=== PATIENT | male | born 1990 | race Caucasian/White ===

== ENCOUNTER 2023-12-19 13:45 | Outpatient (AMB) | payer MEDICARE, MEDICAID, SELFPAY ==
--- NOTE | 2023-12-19 13:48 | A.OFFVIS_ITS ---
Intake Intake Visit Reasons: neurogenic bladder Intake Note: New Patient presents today to establish treatment for: Neurogenic bladder medications: Blood Thinners: Patient symptoms: Patient does not have urinary symptoms, He straight cath with urethral catheter about 5 times a day. Hay Sorter Required: No Accompanied by: Self / Same As Patient Allergies NKDA Allergy (Unknown, Uncoded 12/20/23 18:14) Unknown Medication List - Last Reconciled 12/20/23 by AMINA Hagen duloxetine 60 mg PO DAILY pregabalin 200 mg PO TID HPI HPI Comments History of Present Illness Details Wyatt is a pleasant 33-year-old male patient. He has a past medical history of paraplegia, hyperthyroidism, neurogenic bladder, neurogenic bowel, underweight, recurrent urinary tract infections, and bladdder stones. He presents to the office today as a new patient for his neurogenic bladder and recurrent UTIs. In discussion with the patient today he reports having previo usly followed up with [facility] however has since inquired increasing medical bills and is unable to schedule appointment at this time. He discusses having suffered a trampoline accident approximately 2 and a half years ago and has been paraplegic since this accident. He discusses his previous history of bladder stones and recurrent urinary tract infections when first being diagnosed with a neurogenic bladder. He reports having had one surgical intervention for bladder stones approximately 2 years ago. He reports his last urinary tract infection was over a year ago. He also discusses having erectile dysfunction however does not feel this is bothersome at this time. He reports CIC typically 5-6 times per day. He currently denies any bothersome urinary issues or concerns. He denies urinary urgency, urinary frequency, incontinence, nocturia, hematuria, dysuria, foul smelling urine, flank pain, fever, and or chills. In office urinalysis results reviewed with the patient today. Discussed obtaining retroperitoneal ultrasound for further assessment evaluation. He otherwise offers no other issues or concerns at this time. [facility] Medical History (Updated 12/20/23 @ 18:27 by AMINA Hagen) History of kidney stones Surgical History (Updated 12/20/23 @ 18:30 by AMINA Hagen) H/O spinal fusion H/O lithotripsy Review of Systems Const Reports as per HPI Eyes Reports no additional complaints ENT Reports no additional complaints Card Reports no additional complaints Resp Reports no additional complaints GI Reports as per [facility] Reports as per [facility] Musc Reports as per [facility] Neuro Reports as per [facility] Psych Reports no additional complaints Endo Reports as per [facility] Physical Exam Const General: cooperative, healthy appearing, comfortable, no acute distress, well developed, alert and awake Orientation/consciousness: patient oriented x3 Limitations: wheelchair HEENT Head: Yes normal to inspection, Yes normocephalic and Yes atraumatic Ears: hearing grossly normal bilaterally Eyes General: appearance normal, both eyes and all related structures Neck Neck: Yes normal visual inspection and Yes trachea midline Chest Chest palpation & inspection: normal inspection of the chest Resp Effort & Inspection: normal respiratory effort and able to speak in complete sentences Cardio Rate: regular rate GI Inspection: Yes normal to inspection General: Yes no CVA tenderness Back/Spine/Pelvis Back: no CVA tenderness Skin General skin exam: no rashes or lesions noted Neuro General: patient oriented x3 Extrem General: Yes normal to inspection Psych Appearance: grossly normal and well kempt Mental Status: mental status grossly normal Speech and movement: Clear speech present Affect: normal affect Attitude: cooperative Thought process: Normal thought process present Thought content: Normal thought content present Insight: Fair insight present (Psych) Judgement: Fair judgement present (Psych) Results AMB Urinalysis, Automated UA Leukoctes 70 Megan/uL Last Edit by Cayla Preston [facility] on 12/19/23 14:20 UA Nitrite Negative Last Edit by Cayla Prestonritchie Preston [facility] on 12/19/23 14: 20 UA Urobilinogen 0.2 mg/dL Last Edit by Cayla Prestonritchie Preston [facility] on 4 14:20 UA Protein 0 mg/dL Last Edit by Cayla Prestonritchie Preston [facility] on 12/19/23 14:20 UA pH 7.0 Last Edit by Cayla Prestonritchie Preston [facility] on 12/19/23 14:20 UA Blood 0 Ryland/uL Last Edit by Cayla Prestonritchie Preston [facility] on 12/19/23 14:20 UA Specific [place] 1.020 Last Edit by Cayla Prestonritchie Preston [facility] on 14:20 UA Ketone Negative Last Edit by Cayla Prestonritchie Preston [facility] on 12/19/23 14:2 0 UA Bilirubin 0 mg/dL Last Edit by Cayla Preston [facility] on 12/19/23 14: 20 UA Glucose 0 mg/dL Last Edit by Cayla Preston CMA on 12/19/23 14:20 Results Reviewed Results Reviewed: Laboratory Last Values Urine pH (Auto) 7.0 12/19/23 13:56 Specific [place] (Auto) 1.020 12/19/23 13:56 Urine Protein (Auto) 0 mg/dL 12/19/23 13:56 Glucose (UA)(Auto) 0 mg/dL 12/19/23 13:56 Urine Ketones (Auto) Negative 12/19/23 13:56 Urine Blood (Auto) 0 Ryland/uL 12/19/23 13:56 Urine Nitrite (Auto) Negative 12/19/23 13:56 Urine Bilirubin (Auto) 0 mg/dL 12/19/23 13:56 Urine Urobilinogen (Auto) 0.2 mg/dL 12/19/23 13:56 Leukocyte Esterase (Auto) 70 Megan/uL 12/19/23 13:56 Assessment & Plan Assessment & Plan (1) Neurogenic bladder: Code(s): N31.9 - Neuromuscular dysfunction of bladder, unspecified (2) Recurrent UTI: Code(s): N39.0 - Urinary tract infection, site not specified (3) Bladder calculi: Code(s): N21.0 - Calculus in bladder Plan In office urinalysis results reviewed with the patient today; as noted above. Will send catheter supplies as requested to [facility]; patient performs CIC up to 6 times daily indefinitely. Discussed at length potential causes of recurrent urinary tract infections as well as bladder stones. Will obtain retroperitoneal ultrasound for further assessment evaluation. Patient currently denies any bothersome urinary issues or concerns. Discussed, educated, and stressed the importance of drinking water daily. Discussed importance of following bowel regimen as constipation can also contribute to recurrent urinary tract infections. Discussed possible near future in office cystoscopy for further assessment evaluation. Follow-up in 1-3 months with imaging to be completed prior; or sooner with any issues, concerns, and or questions. Orders: Orders AMB Urinalysis Automated 12/19/23 R33.9 - Retention of urine, unspecified US retroperitoneal comp 12/19/23 N31.9 - Neuromuscular dysfunction of bladder, unspecified Patient Instructions: The patient had an opportunity to ask questions regarding the treatment plan. All questions were answered. Physical exam, labs, and imaging were discussed and reviewed in detail. As well as risks, benefits, and discussion of treatment choices. No major barriers to understanding were identified. The patient expressed understanding and agreement with the above treatment plan. The patient was made aware they should contact our office by phone for worsening of their current condition, the appearance of new symptoms, or with any questions or concerns. Compliance is encouraged with any medications and follow up testing that is ordered. It is a privilege to be allowed the opportunity to participate in? your urological care.? Again, if you have any questions or concerns If you have any questions or concerns please do not hesitate to contact me. The office is [phone]. This note is constructed using voice recognition software. While every effort has been made to ensure accuracy substation operator errors may have been included. Yours sincerely, AMINA Hagen Coding Level of Care Code New Pt Level 3 (93764) Diagnoses Neurogenic bladder N31.9 Recurrent UTI N39.0 Bladder calculi N21.0
== END 2023-12-19 14:48 | disposition home or self-care (01) ==
PROVIDERS: Visit Provider Nurse Practitioner Family
DX: N31.9 Neuromuscular dysfunction of bladder, unspecified (principal); N39.0 Urinary tract infection, site not specified; N21.0 Calculus in bladder
CPT/HCPCS: 99203

== ENCOUNTER → 2023-12-19 13:45 | Outpatient (BNVA) | payer MEDICARE, MEDICAID, SELFPAY | PROVIDERS: Visit Provider Nurse Practitioner Family | DX: N31.9 Neuromuscular dysfunction of bladder, unspecified (principal); N39.0 Urinary tract infection, site not specified; N21.0 Calculus in bladder | CPT/HCPCS: 81003; 99202 ==

== ENCOUNTER 2024-03-08 13:07 | Outpatient (REF) | payer MEDICARE, MEDICAID, SELFPAY ==
--- NOTE | ~2024-03-08 | US_ITS ---
EXAMINATION: US RETROPERITONEAL COMPLETE (RENAL) CLINICAL INFORMATION: Neuromuscular dysfunction of bladder, unspecified. COMPARISON: None available. TECHNIQUE: Real-time imaging of the kidneys and bladder. FINDINGS: RIGHT KIDNEY: 12.3 x 3.9 x 6.1 cm (SAG x AP x TRV). The kidney is normal in size, contour, and echogenicity. Renal cortical thickness is normal. No calculi or focal parenchymal lesions. No hydronephrosis. LEFT KIDNEY: 12.9 x 5.2 x 5.4 cm (SAG x AP x TRV). The kidney is normal in size, contour, and echogenicity. Renal cortical thickness is normal. No calculi or focal parenchymal lesions. No hydronephrosis. BLADDER: Well distended and normal. Bilateral ureteral jets are demonstrated. Prevoid bladder volume is 304 mL. Postvoid bladder volume is 5 mL. ADDITIONAL FINDINGS: The prostate measures 27 mL. US/US retroperitoneal comp IMPRESSION: Mildly enlarged prostate. No hydronephrosis.
== END 2024-03-08 13:08 | disposition home or self-care (01) ==
LOC: HO.HMGCX 13:07
PROVIDERS: Visit Provider Nurse Practitioner Family
DX: N31.9 Neuromuscular dysfunction of bladder, unspecified (principal)
CPT/HCPCS: 76770

== ENCOUNTER 2024-03-12 10:17 | Outpatient (AMB) | payer MEDICARE, MEDICAID, SELFPAY ==
--- NOTE | 2024-03-12 10:17 | A.OFFVIS_ITS ---
Intake Visit Reasons: 3 month follow up/ US(set) Intake Note: Patient presents today for tele visit follow up on ultrasound Imagin03/08/24 Urology Medications: none Blood Thinners: none Roof Bolting Coal Miner Required: No Accompanied by: Self / Same As Patient Allergies NKDA Allergy (Unknown, Uncoded 03/12/24 10:37) Unknown Medication List - Last Reconciled 03/12/24 by AMINA Hagen duloxetine 60 mg PO DAILY pregabalin 200 mg PO TID HPI Comments Details: Wyatt is a pleasant 33-year-old male patient. He has a past medical history of paraplegia, hyperthyroidism, neurogenic bladder, neurogenic bowel, underweight, recurrent urinary tract infections, and bladdder stones. He is being followed up on today via video telehealth. Of note, patient was seen approximately 3 months ago as a new patient for his neurogenic bladder, recurrent UTIs, and bladder stones at which time a retroperitoneal ultrasound was ordered for further assessment evaluation. These results were reviewed with the patient today. Bilateral kidneys with no calculi, lesions, and or hy dronephrosis. The bladder is well distended and normal. Bilateral ureteral jets are demonstrated. Prevoid bladder volume is approximately 300mL. Postvoid bladder volume is 5 mL. Prostate volume measures approximately use be 30 mls. He had been previously following up with [facility]. He has a history of suffering a trampoline accident in 2021 and has been paraplegic since this accident. He does have a history of surgical intervention for his bladder stones. Last urinary tract infection was over a year ago. He also discusses having erectile dysfunction however does not feel this is bothersome at this time. He reports CIC typically 5-6 times per day. He currently denies any bothersome urinary issues or concerns. He denies urinary urgency, urinary frequency, incontinence, nocturia, hematuria, dysuria, foul smelling urine, flank pain, fever, and or chills. He otherwise offers no other issues or concerns at this time. [facility] Medical History History of kidney stones Surgical History H/O spinal fusion H/O lithotripsy Review of Systems Const Reports as per HPI Eyes Reports no additional complaints ENT Reports no additional complaints Card Reports no additional complaints Resp Reports no additional complaints GI Reports as per [facility] Reports as per [facility] Musc Reports as per [facility] Neuro Reports as per [facility] Psych Reports no additional complaints Endo Reports as per [facility] Physical Exam Const General: cooperative, healthy appearing, comfortable, no acute distress, well developed, alert and awake Orientation/consciousness: patient oriented x3 Resp Effort & Inspection: normal respiratory effort and able to speak in complete sentences Neuro General: patient oriented x3 Psych Appearance: grossly normal and well kempt Mental Status: mental status grossly normal Speech and movement: Normal speech and movement present and Clear speech present Affect: normal affect Attitude: cooperative Thought process: Normal thought process present Thought content: Normal thought content present Insight: Fair insight present (Psych) Judgement: Fair judgement present (Psych) Telehealth Telehealth Telehealth Platform: [employer] Location of provider rendering services: practice address Location of patient: address on file Patient Identification confirmed using: Name, : Yes Telehealth method: video Patient verbally consented to treatment: Yes Patient verbally consented to billing insurance company: Yes Patient informed of any privacy concerns related to visit: Yes Minutes spent on Phone/Video with Pt.: 15 Results Reviewed Results Reviewed: Date of Service: 03/08/24 EXAMINATION: US RETROPERITONEAL COMPLETE (RENAL) FINDINGS: RIGHT KIDNEY: 12.3 x 3.9 x 6.1 cm (SAG x AP x TRV). The kidney is normal in size, contour, and echogenicity. Renal cortical thickness is normal. No calculi or focal parenchymal lesions. No hydronephrosis. LEFT KIDNEY: 12.9 x 5.2 x 5.4 cm (SAG x AP x TRV). The kidney is normal in size, contour, and echogenicity. Renal cortical thickness is normal. No calculi or focal parenchymal lesions. No hydronephrosis. BLADDER: Well distended and normal. Bilateral ureteral jets are demonstrated. Prevoid bladder volume is 304 mL. Postvoid bladder volume is 5 mL. ADDITIONAL FINDINGS: The prostate measures 27 mL. IMPRESSION: Mildly enlarged prostate. No hydronephrosis. Assessment & Plan Assessment & Plan (1) Neurogenic bladder: Code(s): N31.9 - Neuromuscular dysfunction of bladder, unspecified Category: Medical (2) Recurrent UTI: Code(s): N39.0 - Urinary tract infection, site not specified Category: Medical (3) Bladder calculi: Code(s): N21.0 - Calculus in bladder Category: Medical Plan Recent retroperitoneal ultrasound results reviewed with the patient today; as noted above. Patient currently denies any bothersome urinary issues or concerns. Discussed, educated, and stressed the importance of drinking water daily. Continue CIC. Discussed prophylactic therapy for recurrent urinary tract infections if sy mptoms arise. Discussed importance of following bowel regimen as constipation can also contribute to recurrent urinary tract infections. Follow-up in 6 months; or sooner with any issues, concerns, and or questions. Patient Instructions: The patient had an opportunity to ask questions regarding the treatment plan. All questions were answered. Physical exam, labs, and imaging were discussed and reviewed in detail. As well as risks, benefits, and discussion of treatment choices. No major barriers to understanding were identified. The patient expressed understanding and agreement with the above treatment plan. The patient was made aware they should contact our office by phone for worsening of their current condition, the appearance of new symptoms, or with any questions or concerns. Compliance is encouraged with any medications and follow up testing that is ordered. It is a privilege to be allowed the opportunity to participate in? your urological care.? Again, if you have any questions or concerns If you have any questions or concerns please do not hesitate to contact me. The office is [phone]. This note is constructed using voice recognition software. While every effort has been made to ensure accuracy motor pool clerk errors may have been included. Yours sincerely, AMINA Hagen Coding Level of Care Code Tele Est Pt Level 3 (45871) Diagnoses Neurogenic bladder N31.9 Recurrent UTI N39.0 Bladder calculi N21.0
--- OUTSIDE RECORDS SUMMARY | 2024-03-12 10:19 | XMS_ITS | Continuity of Care Document ---
Author Organization [facility] Address [address] [place] [address]- Care Team Providers Care Greens Picker Name Role Phone Graciela Colon MD Primary Care Physician Encounter [facility] Date(s): 08/09/22 - 09/08/22 [facility] [address] [place] [id number] Allergies, Adverse Reactions, Alerts No Known Allergies Immunizations Given and Recorded Vaccine Date Status Refusal Reason tetanus/diphtheria/pertussis, acel(Tdap) 05/03/20 Given Medications acetaminophen 325 mg oral tablet 975 mg, 3, tablet, By Mouth, Every 6 hours, PRN, Refills 0, Maintenance, Pain , Moderate, 06/25/21 16:32:00 EDT, Partial fill upon patient request if the prescription is for a schedule II opioid drug. Start Date: 06/25/21 Status: Ordered docusate sodium 100 mg oral tablet 2 tablet = 200 mg, By Mouth, 3 times a day, PRN for constipation, # 100 tablet, 0 Refills, Maintenance, 06/25/21 16:33:00 EDT, Tablet, Partial fill upon patient request if the prescription is for a schedule II opioid drug. Start Date: 06/25/21 Status: Ordered duloxetine 60 mg oral enteric coated capsule See Instructions, TAKE 1 CAPSULE BY MOUTH EVERY DAY, # 90 capsule, 1 Refills, Maintenance, 07/29/2219:49:00 EDT, [facility]/pharmacy #[id number], 183, cm, 07/25/22 12:44:00 EDT, Height, 55, kg, 11/21/21 10:36:00EST, Dry Weight Start Date: 07/29/22 Status: Ordered ibuprofen 400 mg oral tablet 400 mg, 1, tablet, By Mouth, Every 8 hours, PRN, Refills 0, Maintenance, Pain , Moderate, 06/25/21 16:31:00 EDT, Partial fill upon patient request if the prescription is for a schedule II opioid drug. Start Date: 06/25/21 Status: Ordered magnesium oxide 400 mg oral tablet 1 tablet = 400 mg, By Mouth, Daily, 0 Refills, Maintenance, 06/25/21 16:33:00 EDT, Tablet, Partial fill upon patient request if the prescription is for a schedule II opioid drug. Start Date: 06/25/21 Status: Ordered pregabalin 200 mg oral capsule 1 capsule = 200 mg, By Mouth, 3 times a day, DATA REPORTING ANALYST checked, # 90 capsule, 5 Refills, Maintenance, 03/15/22 9:10:00 EDT, Capsule, [facility]/pharmacy #[id number], Partial fill upon patient request if the prescription is for a schedule II opioid drug., 183, cm, 02/14/... Start Date: 03/15/22 Status: Ordered Senokot 187 mg oral tablet 2 tablet = 17.2 mg, By Mouth, Daily at bedtime, PRN for constipation, # 20 tablet, 0 Refills, Maintenance, 06/25/21 16:31:00 EDT, Tablet, Partial fill upon patient request if the prescription is for a schedule II opioid drug. Start Date: 06/25/21 Status: Ordered Problem List Condition Confirmation Course Effective Dates Status H ealth Status Informant Hyperthyroidism Confirmed Active Paraplegia, incomplete Confirmed Active Neurogenic bladder Confirmed Active Neurogenic bowel Confirmed Active Social History Social History Type Response Tobacco Other: quit at 22. Sex Patient Care team information Personnel Name: Graciela Colon MD Address: Address: [address] [id number]
--- OUTSIDE RECORDS SUMMARY | 2024-03-12 10:19 | XMS_ITS | Continuity of Care Document ---
Author Organization [facility] Address [address] [place] [address]- Care Team Providers Care Dry Folder Cloth Name Role Phone Graciela Colon MD Primary Care Physician Encounter [facility] Date(s): 07/25/22 - 08/01/22 [facility] [address] [place] [id number] Encounter Diagnosis Paraplegia following spinal cord injury(Discharge Diagnosis) - 08/01/22 Attending Physician: Graciela Colon MD Allergies, Adverse Reactions, Alerts No Known Allergies [...] 90 capsule, 1 Refills, Maintenance, 07/29/2219:49:00 EDT, [facility] #[id number], 183, cm, 07/25/22 12:44:00 EDT, Height, [...] mg, By Mouth, 3 times a day, GRID TRIMMER checked, # 90 capsule, 5 Refills, Maintenance, 03/15/22 9:10:00 EDT, Capsule, [id number], Partial fill upon patient request if [...] opioid drug. Start Date: 06/25/21 Status: Ordered Super B Complex By Mouth, Daily, 0 Refills, Maintenance, 07/06/21 14:13:00 EDT, Partial fill upon patient request if the prescription is for a schedule II opioid drug. Start Date: 07/06/21 Status: Ordered Turmeric = 500 mg, By Mouth, Daily, 0 Refills, Maintenance, 07/06/21 14:13:00 EDT, Partial fill upon patientrequest if the prescription is for a schedule II opioid drug. Start Date: 07/06/21 Status: Ordered Problem List Condition Confirmation Course Effective Dates Status H ealth Status Informant Hyperthyroidism Confirmed Active Neurogenic bladder Confirmed Active Neurogenic bowel Confirmed Active Paraplegia following spinal cord injury Confirmed Active Diagnosis Diagnosis Type Effective Dates Health Status Clinical Service Informant Paraplegia following spinal cord injury Discharge Diagnosis 08/01/22 Vital Signs Most recent to oldest [Reference Range]: 1 Height 183 cm (07/25/22 12:44 PM) Weight 54.5 kg (07/25/22 12:44 PM) Body Mass Index [18.5-24.99 kg/m2] 16.27 kg/m2 *L* (07/25/22 12:44 PM) Weight Obtained Via Patient/family state d (07/25/22 12:44 PM) Social History Social History Type Response Tobacco Other: quit at 22. Sex Patient Care team information Personnel Name: Graciela Colon MD Address: Address: [address] [place] [address] [address] [place], [place] [id number]
--- OUTSIDE RECORDS SUMMARY | 2024-03-12 10:19 | XMS_ITS | Continuity of Care Document ---
Author Organization [facility] Address [address] [place] [address]- Care Team Providers Care Manager Of Warehouse Name Role Phone Isaiah SANTACRUZ, Graciela Primary Care Physician Encounter [facility] Date(s): 04/11/22 - 05/11/22 [facility] [address] [place] [id number] Allergies, Adverse Reactions, Alerts No Known [...] opioid drug. Start Date: 06/25/21 Status: Ordered Alpha Lipoic Acid 600 mg oral capsule 1 capsule = 600 mg, By Mouth, 2 times a day, 0 Refills, Maintenance, 06/25/21 16:34:00 EDT, Partialfill upon patient request if the prescription is [...] duloxetine 60 mg oral enteric coated capsule 1 capsule = 60 mg, By Mouth, Daily, # 90 capsule, 1 Refills, Maintenance, 01/14/22 14:36:00 EDT, ECCapsule, [id number], Partial fill upon patient request if the prescription is for a schedule II opioid drug., 183, cm, 01/14/22 12:55:00 EDT, H... Start Date: 01/14/22 Status: Ordered ibuprofen 400 mg oral tablet [...] mg, By Mouth, 3 times a day, LEAD LOADER checked, # 90 capsule, 5 Refills, Maintenance, 03/15/22 9:10:00 EDT, Capsule, [facility] #[id number], Partial fill upon patient request if the prescription is for a schedule II opioid drug., 183, cm, ... Start Date: 03/15/22 Status: Ordered Senokot 187 [...] Date: 07/06/21 Status: Ordered Problem List Condition Effective Dates Status Health Status Inform ant Back pain(Confirmed) Active Closed burst fracture of lum bar vertebra(Confirmed) Active Headache(Confirmed) Active H/o Lyme disease(Confirmed) Active Hyperthyroidism(Confirmed) Active Neurogenic bladder(Confirmed) Active Neurogenic bowel(Confirmed) Active Pain, neuropathic(Confirmed) Active Paraplegia following spinal cord injury(Confirmed) Active Spasticity(Confirmed) Active Underweight(Confirmed) Active Social History Social History Type Response Smoking Status Former smoker; Tobac co user in household: No entered on: 03/10/15 Sex
--- OUTSIDE RECORDS SUMMARY | 2024-03-12 10:19 | XMS_ITS | Continuity of Care Document ---
Author Organization [facility] ter Address [address] [place] [address]- Care Team Providers Care Gravity Meter Operator Name Role Phone Sabine KURTZ, Brittany Roque Primary Care Physicia n [place] [facility] [place] - 11/28/[address] [address]- Encounter Diagnosis Depressed(Final) - 11/27/20 Discharge Disposition: Transferred to short-term general hospit Attending Physician: Arnel Shepherd MD Admitting Physician: Arnel Shepherd MD Referring Physician: Not on Staff, Referring MD Allergies, Adverse Reactions, Alerts Substance Reaction Severity Status NKA Active Immunizations Given and Recorded Vaccine Date Status Refusal Reason tetanus/diphtheria/pertussis, acel(Tdap) 05/03/20 Given Problem List Condition Effective Dates Status Health Status Inform ant Headache(Confirmed) Active H/o Lyme disease(Confirmed) Active Hyperthyroidism(Confirmed) Active Viral syndrome(Confirmed) Active Vital Signs Most recent to oldest [Reference Range]: 1 2 3 Height 180 cm (11/28/20 7:00 AM) 180 cm (11/27/20 4:15 PM) 180 cm (11/27/20 4:01 PM) Weight 59.8 kg (11/28/20 7:00 AM) 59.8 kg (11/27/20 4:15 PM) 59.8 kg (11/27/20 4:01 PM) Oxygen Saturation [94-100 %] 100 % (11/28/20 7:00 AM) 96 % (11/27/20 10:39 PM) 100 % (11/27/20 4:01 PM) Pulse Rate [55-90 bpm] 66 bpm (11/28/20 7:00 AM) 55 bpm (11/27/20 10:39 PM) 83 bpm (11/27/20 4:01 PM) Body Mass Index [18.5-24.99] 18.46 *L* (11/28/20 7:00 AM) 18.46 *L* (11/27/20 4:01 PM) Blood Pressure [90-138/55-84 mm Hg] 115/67mm Hg (11/28/20 7:00 AM) 115/70mm Hg (11/27/20 10:39 PM) 134/84mm Hg (11/27/20 4:01 PM) Respiratory Rate [16-30 br/min] 16 br/min (11/28/20 7:00 AM) 18 br/min (11/27/20 10:39 PM) 16 br/min (11/27/20 4:01 PM) Temperature [96.8-100.4 DegF] 98.6 DegF (11/28/20 7:00 AM) 98.2 DegF (11/27/20 10:39 PM) 98.6 DegF (11/27/20 4:01 PM) Mode of Delivery (Oxygen) Room air (11/28/20 7:00 AM) Room air (11/27/20 10:39 PM) Room air (11/27/20 4:01 PM) Blood pressure sites Arm, right (11/28/20 7:00 AM) Arm, left (11/27/20 10:39 PM) Arm, right (11/27/20 4:01 PM) Temperature Route Oral (11/28/20 7:00 AM) Oral (11/27/20 10:39 PM) Oral (11/27/20 4:01 PM) Dry Weight 59.8 kg (11/28/20 7:00 AM) 59.8 kg (11/27/20 4:15 PM) 59.8 kg (11/27/20 4:01 PM) Weight Obtained Via Standing scale (11/27/20 4:01 PM) Dry Weight Obtained Via Standing scale (11/27/20 4:01 PM) Social History Social History Type Response Smoking Status Former smoker; Tobac co user in household: No entered on: 03/10/15 Sex
--- OUTSIDE RECORDS SUMMARY | 2024-03-12 10:19 | XMS_ITS | Continuity of Care Document ---
Author Organization [facility] Adult Address [address] [place] [address]- Care Team Providers Care Securities Vault Supervisor Name Role Phone Graciela Colon MD Primary Care Physician [phone] [place] [facility] [place](s): 07/24/23 - 07/31/[address] [facility] Adult [address] [place] [address]- Encounter Diagnosis Paraplegia, incomplete(Discharge Diagnosis) - 07/24/23 Attending Physician: Watson ALVA, Ophelia Bowden Allergies, Adverse Reactions, Alerts No Known Allergies Immunizations Given and Recorded Vaccine Date Status Refusal Reason tetanus/diphtheria/pertussis, acel(Tdap) 05/03/20 Given Medications docusate sodium 100 mg oral tablet 2 tablet = 200 mg, By Mouth, 3 times a day, PRN for constipation, # 100 tablet, 0 Refills, Maintenance, 06/25/21 16:33:00 EDT, Tablet, Partial fill upon patient request if the prescription is for a schedule II opioid drug. Start Date: 06/25/21 Status: Ordered duloxetine 60 mg oral enteric coated capsule 1 capsule, By Mouth, Daily, # 90 capsule, 1 Refills, Maintenance, 07/30/23 8:38:00 EDT, [id number], 180, cm, 07/24/23 13:23:00 EDT, Height, 54.5, kg, 09/14/22 16:59:00 EST, Dry Weight Start Date: 07/30/23 Status: Ordered magnesium oxide 400 mg oral tablet 1 tablet = 400 mg, By Mouth, Daily, 0 Refills, Maintenance, 06/25/21 16:33:00 EDT, Tablet, Partial fill upon patient request if the prescription is for a schedule II opioid drug. Start Date: 06/25/21 Status: Ordered pregabalin 200 mg oral capsule 1 capsule = 200 mg, By Mouth, 3 times a day, CUSTOMER SERVICE ADMINISTRATOR checked, # 90 capsule, 5 Refills, Maintenance, 07/17/23 17:07:00 EDT, [facility]aps[facility], [id number], Partial fill upon patient request if the prescription is for a schedule II opioid drug., 180, cm, 09/14... Start Date: 07/17/23 Stop Date: 01/13/24 Status: Ordered Senokot 187 mg oral tablet [...] bladder Confirmed Active Neurogenic bowel Confirmed Active Underweight Confirmed Active Diagnosis Diagnosis Type Effective Dates Health Status Clinical Service Informant Paraplegia, incomplete Discharge Diagnosis 07/24/23 Vital Signs Most recent to oldest [Reference Range]: 1 Height 180 cm (07/24/23 1:23 PM) Oxygen Saturation [94-100 %] 97 % (07/24/23 1:23 PM) Pulse Rate [55-90 bpm] 64 bpm (07/24/23 1:23 PM) Blood Pressure [90-138/55-84 mm Hg] 101/ 63mm Hg (07/24/23 1:23 PM) Temperature [96.8-100.4 DegF] 99.4 DegF (07/24/23 1:23 PM) Weight Obtained Via Standing scale (07/24/23 1:23 PM) Social History Social History Type Response Tobacco Other: quit at 22. Sex Note * Una Pittman: PERFORM, SIGN, VERIFY Event Display: Patient Education/Instruction Authored Date: [id number] [facility] *[facility] Clinical Summary Name TOMMY LYNCH Age 32 Years 1990 PCP Isaiah SANTACRUZ, Graciela PCP Visit Date 07/24/2023 13:21:00 Additional Instructions: Scheduled Appointments?? Future Appointments ?*[facility] [address] ?Phone:??--?Fax:??-- ?Appt. Date:??09/02/2023?9:25 AM ?Scheduled Provider:??Isaiah SANTACRUZ , Graciela Follow-Up Instructions ?? Diagnosis Paraplegia, incomplete Medications: Please continue your medications until treatment is completed or stopped by your provider. Discuss any questions related to medications with your provider. Medications to Continue with No Changes These medications were not printed or sent to your pharmacy Docusate (docusate sodium 100 mg oral tablet) 2 tab(s) Oral 3 times a day as needed for constipation. Next Dose: Duloxetine (duloxetine 60 mg oral enteric coated capsule) 1 capsule Oral Daily. Refills: 1. Next Dose: Magnesium Oxide (magnesium oxide 400 mg oral tablet) 1 tab(s) Oral Daily. Next Dose: Pregabalin (pregabalin 200 mg oral capsule) 1 capsule Oral 3 times a day for 30 Days. CUSTOMER SERVICE ADMINISTRATOR checked. Refills: 5. Next Dose: Senna (Senokot 187 mg oral tablet) 2 tab(s) Oral Daily at Bedtime as needed for constipation. Next Dose: No Longer Take the Following Medications Acetaminophen (acetaminophen 325 mg oral tablet) 3 tab(s) Oral every 6 hours as needed Pain , Moderate. Ibuprofen (ibuprofen 400 mg oral tablet) 1 tab(s) Oral every 8 hours as needed Pain , Moderate. Allergy Info:?? No Known Medication Allergies; NKA Medications Given This Visit Future Orders ?No future orders Vital Signs Height 180 cm Weight BMI Blood Pressure 101 mm Hg/63 mm Hg Temperature 99.4 DegF Pulse Rate 64 bpm Respiratory Rate 02 Sat Mode of Delivery 97 %/ You can now view a summary of your hospital visit from the comfort of your home through a free online portal called [employer]. [employer] is a website that allows you to securely view your medical information including discharge summary, medications and follow-up visits. ??You can alsosend a secure electronic message to your doctor???s office to request appointments, renew medications or just ask a question. You can enroll at [email or web address] or register during your next office visit. Disclaimer:?? The information provided is of a general nature and is intended to be used in conjunction with the recommendations and advice of your health care practitioner. ??Every effort has been made to ensure that the information provided is accurate and complete at the time it is provided to you however, as your needs change, or, as new ??information becomes available, different or additional instructions may be required. If you have questions, please consult with your primary care provider or pharmacist, as appropriate. ??This information is not intended to serve as substitution for assessment and evaluation by a qualified health care provider. If you do not have a primary care provider, you may find a [facility] provider by calling [facility] Reaction Link at [phone]. [facility], in keeping with [facility] guidance, no longer requires face masks for staff, patientsor visitors in most situations. Similar to time spent indoors at other locations, there is the chance that you were exposed to respiratory viruses during your time with us (such as flu or COVID-19).? If you develop symptoms concerning for a viral respiratory infection, please seek testing (and treatment if indicated) from your medical provider or home test kit. For information about the plan of care including goals and instructions for your diagnosis, please see the patient education orders section of this document. Patient Education Materials?? The content of this educational material or handout may have been modified, supplemented, or adapted from its original content and format to support your individualized medical care. Patient Care team information Care Team Personnel Name: Marifer Aguila RN Position: S RN Member Role: Primary Care Nurse Name: Keiko Erickson RN Position: S RN Supv Member Role: Primary Care Nurse Name: Isaiah SANTACRUZ, Graciela Position: [facility] Physician - Primary Care Member Role: PCP Address: Address: [address] [place] [address] [address] [place] [address]- Care Team Related Persons Name: CARLOS ALBERTO SALDANA Address: [place] [address] [place] [address] Name: ALDO OLIVAS Address: [address] [place] [address]
--- OUTSIDE RECORDS SUMMARY | 2024-03-12 10:19 | XMS_ITS | Continuity of Care Document ---
Author Organization [facility] Adult Address [address] [place] [address]- Care Team Providers Care Head Of Design Name Role Phone Sabine KURTZ, Brittany Roque Primary Care Physicia n Encounter [facility] [place] Date(s): 08/14/21 - 09/13/21 [facility] Adult [address] [place] [address]- Allergies, Adverse Reactions, Alerts No Known Medication Allergies Substance Reaction Severity Status NKA Active Immunizations [...] opioid drug. Start Date: 06/25/21 Status: Ordered fosfomycin 3 gm oral powder for reconstitution 1 pack/packet, By Mouth, Once, dissolve in water before taking, # 3 Gm, 0 Refills, Soft Stop, 08/23/21 13:37:00 EDT, REC Powder, [facility]/pharmacy #[id number], Partial fill upon patient request if the prescription is for a schedule II opioid drug., 180, cm, 09/0... Start Date: 08/23/21 Status: Ordered ibuprofen 400 mg oral tablet [...] drug. Start Date: 06/25/21 Status: Ordered pregabalin 100 mg oral capsule 2 capsule = 200 mg, By Mouth, 3 times a day, DISPENSING AUDIOLOGIST checked, # 180 capsule, 5 Refills, Maintenance, 07/27/21 11:02:00 EDT, Capsule, [facility]/pharmacy #[id number], Partial fill upon patient request if the prescription is for a schedule II opioid drug., 180, cm, 09/0... Start Date: 07/27/21 Status: Ordered Senokot 187 mg oral tablet [...] following spinal cord injury(Confirmed) Active Spasticity(Confirmed) Active Social History Social History Type Response Smoking Status Former smoker; Tobac co user in household: No entered on: 03/10/15 Sex
--- OUTSIDE RECORDS SUMMARY | 2024-03-12 10:19 | XMS_ITS | Continuity of Care Document ---
Author Organization [facility] Adult Address [address] [place] [address]- Care Team Providers Care Drafting Clerk Name Role Phone Sabine KURTZ, Brittany Roque Primary Care Physicia n Encounter [facility] [place] Date(s): 08/28/21 - 09/27/21 [facility] Adult [address] [place] [address]- Allergies, Adverse Reactions, Alerts No Known Medication [...] Soft Stop, 08/23/21 13:37:00 EDT, REC Powder, [facility]/pharmacy #[id number], Partial fill upon patient request if [...] mg, By Mouth, 3 times a day, SET UP MECHANIC HEADING MACHINES checked, # 180 capsule, 5 Refills, Maintenance, 07/27/21 11:02:00 EDT, Capsule, [facility]/pharmacy #[id number], Partial fill upon patient request if [...]
--- OUTSIDE RECORDS SUMMARY | 2024-03-12 10:19 | XMS_ITS | Continuity of Care Document ---
Author Organization [facility] Adult Address [address] [place] [address]- Care Team Providers Care Industrial Maintenance Manager Name Role Phone Graciela Colon MD Primary Care Physician Encounter [facility] [place] Date(s): 09/12/22 - 09/19/22 [facility] Adult [address] [place] [address]- Encounter Diagnosis Paraplegia, incomplete(Discharge Diagnosis) - 09/12/22 Attending Physician: Garciela Colon MD Allergies, Adverse Reactions, Alerts No [...] mg, By Mouth, 3 times a day, for 7 days, # 21 capsule, 0 Refills, Hard Stop 09/21/22 17:07:00 EST, 09/14/22 17:07:00 EST, Caps[facility], [id number], Partial fill upon patient request if the prescription is for a schedule II opioid dr... Start Date: 09/14/22 Stop Date: 09/21/22 Status: Ordered pregabalin 200 mg oral capsule 1 capsule = 200 mg, By Mouth, 3 times a day, # 21 capsule, 0 Refills, Maintenance, 09/21/22 17:07:00 EST, Caps[facility], [id number], Partial fill upon patient request if the prescription is for a schedule II opioid drug., 180, cm, 09/14/22 16:59:00... Start Date: 09/21/22 Stop Date: 09/28/22 Status: Ordered pregabalin 200 mg oral capsule 1 capsule = 200 mg, By Mouth, 3 times a day, BILINGUAL ACCOUNT MANAGER checked, # 90 capsule, 5 Refills, Maintenance, [...] Clinical Service Informant Paraplegia, incomplete Discharge Diagnosis 09/12/22 Vital Signs Most recent to oldest [Reference Range]: 1 Height 183 cm (09/12/22 10:32 AM) Weight Obtained Via Patient/family state d (09/12/22 10:32 AM) Social History Social History Type Response Tobacco Other: quit at 22. Sex Patient Care team information Care Team Personnel Name: Lucy Wise Position: [facility] RN Member Role: Primary Care Nurse Name: Marifer Aguila RN Position: [facility] RN Member Role: Primary Care Nurse Name: Keiko Erickson RN Position: S RN Member Role: Primary Care Nurse Name: Graciela Colon MD Position: [facility] Primary Care Physician Member Role: PCP Address: Address: [address] [place] [address] [address]rd [place] [address]- Care Team Related Persons Name: CARLOS ALBERTO SALDANA Address: home [address] [place] [address] Name: ALDO OLIVAS Address: [place] [address] [place] [address]
--- OUTSIDE RECORDS SUMMARY | 2024-03-12 10:19 | XMS_ITS | Continuity of Care Document ---
Author Organization [facility] Adult Address [address] [place] [address]- Care Team Providers Care Plastics Tooling Engineer Name Role Phone Sabine KURTZ, Brittany Roque Primary Care Physicia n En[place] [facility] [place] Date(s): 10/29/21 - 11/28/21 [facility] Adult [address] [place] [address]- Allergies, Adverse Reactions, Alerts No Known Allergies [...] opioid drug. Start Date: 06/25/21 Status: Ordered ibuprofen 400 mg oral tablet [...] mg, By Mouth, 3 times a day, SVP DIGITAL SALES checked, # 180 capsule, 5 Refills, Maintenance, 07/27/21 11:02:00 EDT, [facility]aps[facility], [id number], Partial fill upon patient request if the prescription is for a schedule II opioid drug., 180, cm, 0... Start Date: 07/27/21 Status: Ordered Senokot 187 [...]
--- OUTSIDE RECORDS SUMMARY | 2024-03-12 10:19 | XMS_ITS | Continuity of Care Document ---
Author Organization [facility] Adult Address [address] [place] [address]- Care Team Providers Care Juice Mixer Name Role Phone Graciela Colon MD Primary Care Physician [phone] [facility] [place] Date(s): 11/04/23 - 12/04/23 [facility] Adult [address] [place] [address]- Allergies, Adverse Reactions, Alerts No Known Allergies [...] Refills, Maintenance, 07/30/23 8:38:00 EDT, [facility], 180, cm, 07/24/23 13:23:00 EDT, Height, 54.5, kg, 09/14/22 16:59:00 EST, Dry Weight Start Date: 07/30/23 Status: Ordered magnesium oxide 400 mg oral tablet 1 tablet = 400 mg, By Mouth, Daily, 0 Refills, Maintenance, 06/25/21 16:33:00 EDT, Tablet, Partial fill upon patient request if the prescription is for a schedule II opioid drug. Start Date: 06/25/21 Status: Ordered methimazole 5 mg oral tablet 2.5 mg, 0.5, tablet, By Mouth, Daily, # 45 tablet, Refills 3, Tot. Refills 3, Maintenance, 09/12/2310:37:00 EST, Route to [id number], Partial fill upon patient request if the prescription is for a schedule II opioid d... Start Date: 09/12/23 Stop Date: 09/06/24 Status: Ordered pregabalin 200 mg oral capsule 1 capsule = 200 mg, By Mouth, 3 times a day, QUALITY CONTROL SCIENTIST checked, # 90 capsule, 5 Refills, Maintenance, 07/17/23 17:07:00 EDT, Capsule, [facility]/pharmacy #[id number], Partial fill upon patient [...] Neurogenic bowel Confirmed Active Underweight Confirmed Active Social History Social History Type Response Tobacco Other: quit at 22. Sex Patient Care team information Care Team Personnel Name: Marifer Aguila RN Position: [facility] RN Member Role: Primary Care Nurse Name: Keiko Erickson RN Position: [facility] RN Supv Member Role: Primary Care Nurse Name: Graciela Colon MD Position: [facility] Physician - Primary Care Member Role: PCP Address: Address: [address] [place] [address] [address] [place] [address]- Care Team Related Persons Name: LESCARLOS ALBERTO Hilton Address: home [address] [place] [address] Name: ALDO OLIVAS Address: home [address] [place] [address]
--- OUTSIDE RECORDS SUMMARY | 2024-03-12 10:19 | XMS_ITS | Continuity of Care Document ---
Author Organization [facility] Adult Address [address] [place] [address]- Care Team Providers Care Driller Brake Lining Name Role Phone Isaiah SANTACRUZ, Graciela Primary Care Physician Encounter [facility] [place] Date(s): 03/21/22 - 04/20/22 [facility] Adult [address] [place] [address] Allergies, Adverse Reactions, Alerts No Known [...] 1 Refills, Maintenance, 01/14/22 14:36:00 EDT, ECCapsule, [facility]/pharmacy #[id number], Partial fill upon patient [...] mg, By Mouth, 3 times a day, SPINNING OPERATOR checked, # 90 capsule, 5 Refills, Maintenance, 03/15/22 9:10:00 EDT, Capsule, [facility]/pharmacy #[id number], Partial fill upon patient [...]
--- OUTSIDE RECORDS SUMMARY | 2024-03-12 10:19 | XMS_ITS | Continuity of Care Document ---
Author Organization [facility] Adult Address [address] [place] [address]- Care Team Providers Care Vehicle Delivery Worker Name Role Phone Graciela Colon MD Primary Care Physician Encounter [facility] Date(s): 07/03/23 - 08/02/23 [facility] Adult [address] [place] [address]- Allergies, Adverse Reactions, Alerts No Known Allergies [...] capsule, 1 Refills, Maintenance, 07/30/23 8:38:00 EDT, [id number], 180, cm, 07/24/23 13:23:00 EDT, Height, 54.5, [...] mg, By Mouth, 3 times a day, PILOT BOAT DECKHAND checked, # 90 capsule, 5 Refills, Maintenance, [...] Team Personnel Name: Marifer Aguila RN Position: [facility] RN Member Role: Primary Care Nurse Name: Keiko Erickson RN Position: [facility] RN Supv Member Role: Primary Care Nurse Name: Graciela Colon MD Position: [facility] Physician - Primary Care Member Role: PCP Address: Address: [address] [place] [address] [address]rd [place] [address]- Care Team Related Persons Name: CARLOS ALBERTO SALDANA Address: home [address] [place] [address] Name: ALDO OLIVAS Address: home [address] [place] [address]
--- OUTSIDE RECORDS SUMMARY | 2024-03-12 10:19 | XMS_ITS | Continuity of Care Document ---
Author Organization [facility] Adult Address [address] [place] [address]- Care Team Providers Care Assisted Living Home Director Name Role Phone Graciela Colon MD Primary Care Physician [phone] [place] [facility] [place]23 - 11/20/23 [facility] Adult [address] [place] [address]- Allergies, Adverse Reactions, Alerts No Known Allergies [...] Refills, Maintenance, 07/30/23 8:38:00 EDT, [facility], 180, cm, 07/24/23 13:23:00 EDT, Height, 54.5, [...] mg, By Mouth, 3 times a day, PARTY SUPPLY SPECIALIST checked, # 90 capsule, 5 Refills, Maintenance, 07/17/23 17:07:00 EDT, Capsule, [facility]/pharmacy #[id number], Partial fill upon patient request if [...] Team Personnel Name: Marifer Aguila RN Position: [facility] RN Member Role: Primary Care Nurse Name: Keiko Erickson RN Position: [facility] RN Supv Member Role: Primary Care Nurse Name: Graciela Colon MD Position: [facility] Physician - Primary Care Member Role: PCP Address: Address: [address] [place] [address] [address] [place] [address]- Care Team Related Persons Name: LESCARLOS ALBERTO Hilton Address: home [address] [place] [address] Name: ALDO OLIVAS Address: [place] [address] [place] [address]
--- OUTSIDE RECORDS SUMMARY | 2024-03-12 10:19 | XMS_ITS | Continuity of Care Document ---
Author Organization [facility] Adult Address [address] [place] [address]- Care Team Providers Care Charger Tester Name Role Phone Sabine KURTZ, Brittany Roque Primary Care Physicia n Encounter [facility] Date(s): 08/01/20 - 08/31/20 [facility] Adult [address] [place] [address] [facility] Allergies, Adverse Reactions, Alerts Substance Reaction Severity Status NKA Active Immunizations Given and Recorded Vaccine Date Status Refusal Reason tetanus/diphtheria/pertussis, acel(Tdap) 05/03/20 Given Problem List Condition Effective Dates Status Health Status Inform ant Headache(Confirmed) Active H/o Lyme disease(Confirmed) Active Hyperthyroidism(Confirmed) Active Viral syndrome(Confirmed) Active Social History Social History Type Response Smoking Status Former smoker; Tobac co user in household: No entered on: 03/10/15 Sex
--- OUTSIDE RECORDS SUMMARY | 2024-03-12 10:19 | XMS_ITS | Continuity of Care Document ---
Author Organization [facility] Adult Address [address] [place] [address]- Care Team Providers Care Production Statistical Clerk Name Role Phone Graciela Colon MD Primary Care Physician Encounter [facility] [place] Date(s): 09/16/22 - 10/16/22 [facility] Adult [address] [place] [address]- Allergies, Adverse Reactions, Alerts No Known Allergies [...] 90 capsule, 1 Refills, Maintenance, 07/29/2219:49:00 EDT, [facility]/pharmacy #[id number], 183, cm, 07/25/22 12:44:00 EDT, Height, [...] By Mouth, 3 times a day, for 30 days, # 90 capsule, 0 Refills, Hard Stop 10/20/22 13:18:00 EST, 09/20/22 13:18:00 EST, Capsule, [id number], Partial fill upon patient request if the prescription is for a schedule II opioid d... Start Date: 09/20/22 Stop Date: 10/20/22 Status: Ordered pregabalin 200 mg oral capsule 1 capsule = 200 mg, By Mouth, 3 times a day, HOG MAN checked, # 90 capsule, 5 Refills, Maintenance, 09/20/22 13:15:00 EST, Capsule, [id number], Partial fill upon patient request if the prescription is for a schedule II opioid drug., 09/13/22, 180,... Start Date: 09/20/22 Status: Ordered Senokot 187 mg oral tablet [...] Care Team Personnel Name: Lucy Wise Position: [facility] RN Member Role: Primary Care Nurse Name: Marifer Aguila RN Position: S RN Member Role: Primary Care Nurse Name: Keiko Erickson RN Position: [facility] RN Member Role: Primary Care Nurse Name: Graciela Colon MD Position: [facility] Primary Care Physician Member Role: PCP Address: Address: [address] [place] [address] [address] [place] [address]- Care Team Related Persons Name: CARLOS ALBERTO SALDANA Address: home [address] [place] [address] Name: ALDO OLIVAS Address: home [address] [place] [address]
--- OUTSIDE RECORDS SUMMARY | 2024-03-12 10:19 | XMS_ITS | Continuity of Care Document ---
Author Organization [facility] Adult Address [address] [place] [address]- Care Team Providers Care Marketing Planning Manager Name Role Phone Isaiah SANTACRUZ, Graciela Primary Care Physician Encounter [facility] [place] Date(s): 07/05/22 - 08/04/22 [facility] Adult [address] [place] [address] Allergies, Adverse Reactions, Alerts No Known [...] 90 capsule, 1 Refills, Maintenance, 07/29/2219:49:00 EDT, [facility]/pharmacy #[id number], 183, cm, 07/25/22 12:44:00 EDT, Height, [...] mg, By Mouth, 3 times a day, NETWORK COORDINATOR checked, # 90 capsule, 5 Refills, Maintenance, 03/15/22 9:10:00 EDT, Capsule, 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 Sex Patient Care team information Personnel Name: Graciela Colon MD Address: Address: [address] [place] [address] [address] [place] [address]- [place]
--- OUTSIDE RECORDS SUMMARY | 2024-03-12 10:19 | XMS_ITS | Continuity of Care Document ---
Author Organization [facility] Adult Address [address] [place] [address]- Care Team Providers Care Operations Support Coordinator Name Role Phone Graciela Colon MD Primary Care Physician Encounter [facility] [place] Date(s): 05/13/23 - 06/12/23 [facility] Adult [address] [place] [address]- Allergies, Adverse Reactions, Alerts No Known Allergies [...] Daily, # 90 capsule, 1 Refills, Maintenance, 01/22/23 16:01:00 EDT, [id number], 180, cm, 09/14/22 16:59:00 EST, Height, 54.5, kg, 09/14/22 16:59:00 EST, Dry Weight Start Date: 01/22/23 Status: Ordered ibuprofen 400 mg oral tablet [...] mg, By Mouth, 3 times a day, HEAVY EQUIPMENT OPERATOR APPRENTICE checked, # 90 capsule, 5 Refills, Maintenance, 01/16/23 16:32:00 EDT, Capsule, [facility]/pharmacy #[id number], Partial fill upon patient request if the prescription is for a schedule II opioid drug., 180, cm, 09/14... Start Date: 01/16/23 Stop Date: 07/15/23 Status: Ordered Senokot 187 mg oral tablet [...] Care team information Care Team Personnel Name: Keiko Erickson RN Position: [facility] RN Supv Member Role: Primary Care Nurse Name: Graciela Colon MD Position: [facility] Physician - Primary Care Member Role: PCP Address: Address: [address] [place] [address]- Care Team Related Persons Name: CARLOS ALBERTO SALDANA Address: home [address] [place] [address] Name: ALDO OLIVAS Address: home [address] [place] [address]
--- OUTSIDE RECORDS SUMMARY | 2024-03-12 10:19 | XMS_ITS | Continuity of Care Document ---
Author Organization [facility] Adult Address [address] [place] [address]- Care Team Providers Care Lan Support Specialist Name Role Phone Isaiah SANTACRUZ, Graciela Primary Care Physician En[place] [facility] [place] Date(s): 03/15/22 - 04/14/22 [facility] Adult [address] [place] [id number] Allergies, Adverse Reactions, Alerts No Known Allergies [...] 1 Refills, Maintenance, 01/14/22 14:36:00 EDT, ECCapsule, [facility]/pharmacy #[id number], Partial fill upon patient request [...] mg, By Mouth, 3 times a day, AUTO APPRAISER checked, # 90 capsule, 5 Refills, Maintenance, 03/15/22 9:10:00 EDT, Capsule, [facility]/pharmacy #[id number], Partial fill upon patient request [...]
--- OUTSIDE RECORDS SUMMARY | 2024-03-12 10:19 | XMS_ITS | Continuity of Care Document ---
Author Organization [facility] Adult Address [address] [place] [address]- Care Team Providers Care Metal Burnisher Name Role Phone Sabine KURTZ, Brittany Roque Primary Care Physicia n Encounter [facility] [place] Date(s): 10/31/21 - 11/30/21 [facility] Adult [address] [place] [address]- Allergies, Adverse Reactions, Alerts No Known Allergies [...] mg, By Mouth, 3 times a day, ICE DELIVERY DRIVER checked, # 180 capsule, 5 Refills, Maintenance, [...]
--- OUTSIDE RECORDS SUMMARY | 2024-03-12 10:19 | XMS_ITS | Continuity of Care Document ---
Author Organization [facility] Address [address] [place], [place] [address], [address] [place] [address]- Care Team Providers Care Platinumsmith Name Role Phone Sabine KURTZ, Brittany Roque Primary Care Physicia n Encounter [facility] [place] Date(s): 05/02/21 - 06/01/21 [facility] [address] [place] [address], [address] [place] [address]- Allergies, Adverse Reactions, Alerts No Known Medication Allergies Substance Reaction Severity Status NKA Active Immunizations Given and Recorded Vaccine Date Status Refusal Reason tetanus/diphtheria/pertussis, acel(Tdap) 05/03/20 Given Medications Multivitamin See Instructions, Daily, 0 Refills, Maintenance, 12/06/20 15:34:00 EST, Partial fill upon patient request if the prescription is for a schedule II opioid drug. Start Date: 12/06/20 Status: Ordered OxyCONTIN 10 mg oral tablet, extended release 30 mg, 3, tablet, By Mouth, Every 8 hours, # 270 tablet, Refills 0, Tot. Refills 0, Maintenance, 04/06/21 7:33:00 EDT, Print Requisition, Partial fill upon patient request if the prescription is for a schedule II opioid drug. Start Date: 04/06/21 Status: Ordered tiZANidine 4 mg oral tablet 4 mg, 1, tablet, By Mouth, Every 8 hours, # 90 tablet, Refills 0, Tot. Refills 0, Maintenance, 04/06/21 7:33:00 EDT, Print Requisition, Partial fill upon patient request if the prescription is for a schedule II opioid drug. Start Date: 04/06/21 Status: Ordered turmeric 500 mg oral capsule 1 capsule = 500 mg, By Mouth, Daily, 0 Refills, Maintenance, 12/06/20 15:35:00 EST, Partial fill upon patient request if the prescription is for a schedule II opioid drug. Start Date: 12/06/20 Status: Ordered Vitamin B Complex oral tablet, extended release By Mouth, Daily, 0 Refills, Maintenance, 12/06/20 15:34:00 EST, Partial fill upon patient request if the prescription is for a schedule II opioid drug. Start Date: 12/06/20 Status: Ordered Problem List Condition Effective Dates Status Health Status Inform ant Headache(Confirmed) Active H/o Lyme disease(Confirmed) Active Hyperthyroidism(Confirmed) Active Viral syndrome(Confirmed) Active Social History Social History Type Response Smoking Status Former smoker; Tobac co user in household: No entered on: 03/10/15 Sex
--- OUTSIDE RECORDS SUMMARY | 2024-03-12 10:19 | XMS_ITS | Continuity of Care Document ---
Author Organization [facility] Address Unknown Care Team Providers Care Security Officer Name Role Phone Sabine KURTZ, Brittany Roque Primary Care Physicia n [place] [facility] [place] 12/20/21 - 01/19/22 [facility] Attending Physician: Redd Delgado Admitting Physician: Redd Delgado Referring Physician: Redd Delgado Allergies, Adverse Reactions, Alerts No Known Allergies [...] 1 Refills, Maintenance, 01/14/22 14:36:00 EDT, ECCapsule, [facility]/pharmacy #[id number], Partial fill upon patient request [...] Status: Ordered pregabalin 100 mg oral capsule 1 capsule = 100 mg, By Mouth, 3 times a day, Take with the 75 mg, # 90 capsule, 0 Refills, Maintenance, 01/03/22 15:39:00 EST, Capsule, [facility]/pharmacy #1234, Partial fill upon patient request if the prescription is for a schedule II opioid drug., 183, c... Start Date: 01/03/22 Stop Date: 02/02/22 Status: Ordered pregabalin 25 mg oral capsule 3 capsule = 75 mg, By Mouth, 3 times a day, Take with the 100 mg capsules, # 270 capsule, 0 Refills, Maintenance, 01/03/22 15:42:00 EST, Capsule, [facility]/pharmacy #1234, Partial fill upon patient requestif the prescription is for a schedule II opioid rosita... Start Date: 01/03/22 Stop Date: 02/02/22 Status: Ordered Senokot 187 mg oral tablet [...]
--- OUTSIDE RECORDS SUMMARY | 2024-03-12 10:19 | XMS_ITS | Continuity of Care Document ---
Author Organization [facility] Adult Address [address] [place] [address]- Care Team Providers Care Brass And Wind Instrument Repairer Name Role Phone Sabine KURTZ, Brittany Roque Primary Care Physicia n Encounter [facility] Date(s): 09/06/21 - 10/06/21 [facility] Adult [address] [place] [address]- Attending Physician: Redd Delgado Admitting Physician: Redd Delgado Referring Physician: AdmtrRedd Allergies, Adverse Reactions, Alerts No Known Medication [...] Soft Stop, 08/23/21 13:37:00 EDT, REC Powder, [facility]/pharmacy #1234, Partial fill upon patient request if the prescription is for a schedule II opioid drug., 180, cm, 090... Start Date: 08/23/21 Status: Ordered ibuprofen 400 [...] mg, By Mouth, 3 times a day, ASSURANCE SENIOR checked, # 180 capsule, 5 Refills, Maintenance, 07/27/21 11:02:00 EDT, Capsule, [facility]/pharmacy #1234, Partial fill upon patient request [...]
--- OUTSIDE RECORDS SUMMARY | 2024-03-12 10:19 | XMS_ITS | Continuity of Care Document ---
Author Organization [facility] Adult Address [address] [place] [address]- Care Team Providers Care Fraternity Adviser Name Role Phone Graciela Colon MD Primary Care Physician Encounter [facility] [place] Date(s): 05/01/23 - 05/31/23 [facility] Adult [address] [place] [address]- Allergies, Adverse Reactions, Alerts No Known Allergies [...] capsule, 1 Refills, Maintenance, 01/22/23 16:01:00 EDT, [facility] 118[facility], 180, cm, 09/14/22 16:59:00 EST, Height, 54.5, [...] mg, By Mouth, 3 times a day, FACTORY EXPERT checked, # 90 capsule, 5 Refills, Maintenance, 01/16/23 16:32:00 EDT, Capsule, [facility]/pharmacy #1234, Partial fill upon patient [...] Team Personnel Name: Keiko Erickson RN Position: [facility] RN Supv Member Role: Primary Care Nurse Name: Graciela Colon MD Position: [facility] Physician - Primary Care Member Role: PCP Address: Address: [address]rd [place] [address]- Care Team Related Persons Name: CARLOS ALBERTO SALDANA Address: home [address] [place] [address] Name: ALDO OLIVAS Address: home [address] [place] [address]
--- OUTSIDE RECORDS SUMMARY | 2024-03-12 10:19 | XMS_ITS | Continuity of Care Document ---
Author Organization [facility] Adult Address [address] [place] [address]- Care Team Providers Care Transportation Security Screener Name Role Phone Sabine KURTZ, Brittany Roque Primary Care Physicia n En[place] [facility] [place](s): 07/09/21 - 08/08/21 [facility] Adult [address] [place] [phone]- Allergies, Adverse Reactions, Alerts No Known Medication [...] opioid drug. Start Date: 06/25/21 Status: Ordered amitriptyline 10 mg oral tablet 10 mg, 1, tablet, By Mouth, Daily at bedtime, # 30 tablet, Refills 0, Maintenance, 06/25/21 16:35:00 EDT, Partial fill upon patient request if the prescription is for a schedule II opioid drug. Start Date: 06/25/21 Status: Ordered amoxicillin-clavulanate 875 mg-125 mg oral tablet 1 tablet, By Mouth, Every 12 hours, for 7 days, # 14 tablet, 0 Refills, Acute 08/11/21 16:50:00 EDT, 08/04/21 16:50:00 EDT, Tablet, [facility]/pharmacy #1234, Partial fill upon patient request if the prescription is for a schedule II opioid drug., 180, cm, 0... Start Date: 08/04/21 Stop Date: 08/11/21 Status: Ordered docusate sodium 100 mg oral [...] mg, By Mouth, 3 times a day, POLICE SERGEANT checked, # 180 capsule, 5 Refills, Maintenance, 07/27/21 11:02:00 EDT, Capsule, [facility]/pharmacy #1234, Partial fill upon patient request if the prescription is for a schedule II opioid drug., 180, cm, 090... Start Date: 07/27/21 Status: Ordered Senokot 187 [...] Effective Dates Status Health Status Inform ant Closed burst fracture of lum bar vertebra(Confirmed) Active Headache(Confirmed) Active H/o Lyme disease(Confirmed) Active Hyperthyroidism(Confirmed) Active Neurogenic bladder(Confirmed) Active Neurogenic bowel(Confirmed) Active Pain, neuropathic(Confirmed) Active Paraplegia following spinal cord injury(Confirmed) Active Spasticity(Confirmed) Active Social History Social History Type Response Smoking Status Former smoker; Tobac co user in household: No entered on: 03/10/15 Sex
--- OUTSIDE RECORDS SUMMARY | 2024-03-12 10:19 | XMS_ITS | Continuity of Care Document ---
Author Organization [facility] Adult Address [address] [place] [address]- Care Team Providers Care Combat Engineer Name Role Phone Sabine KURTZ, Brittany Roque Primary Care Physicia n [place] [facility] [place](s): 07/27/21 - 08/26/21 [facility] Adult [address] [place] [address]- Allergies, Adverse Reactions, Alerts No Known Medication [...] Soft Stop, 08/23/21 13:37:00 EDT, REC Powder, [facility]/pharmacy #[id number], Partial fill upon patient [...] mg, By Mouth, 3 times a day, COMPLIANCE NURSE checked, # 180 capsule, 5 Refills, Maintenance, 07/27/21 11:02:00 EDT, Capsule, [facility]/pharmacy #1234, Partial fill upon patient [...]
--- OUTSIDE RECORDS SUMMARY | 2024-03-12 10:19 | XMS_ITS | Continuity of Care Document ---
Author Organization [facility] Adult Address [address] [place] [address]- Care Team Providers Care Retirement Benefits Specialist Name Role Phone Sabine KURTZ, Brittany Roque Primary Care Physicia n [place] [facility] [place] 04[place]04[place]21 - 05/04/21 [facility] Adult [address] [place] [address]- Allergies, Adverse Reactions, Alerts No Known Medication [...]
--- OUTSIDE RECORDS SUMMARY | 2024-03-12 10:19 | XMS_ITS | Continuity of Care Document ---
Author Organization [facility] Address Unknown Care Team Providers Care Keller Machine Operator Name Role Phone Sabine KURTZ, Brittany Mya Primary Care Physicia n Encounter [facility] [place] Date(s): 09/21/21 - 01/19/22 [facility] Attending Physician: Michel Horan MD Allergies, Adverse Reactions, Alerts No Known [...] 1 Refills, Maintenance, 01/14/22 14:36:00 EDT, [facility]CCaps[facility], [facility], Partial fill upon patient request [...] 0 Refills, Maintenance, 01/03/22 15:39:00 EST, Capsule, [facility]/pharmacy #1234, Partial fill upon patient request if the prescription is for a schedule II opioid drug., 183, c... Start Date: 01/03/22 Stop Date: 02/02/22 Status: Ordered pregabalin 25 mg oral capsule 3 capsule = 75 mg, By Mouth, 3 times a day, Take with the 100 mg capsules, # 270 capsule, 0 Refills, Maintenance, 01/03/22 15:42:00 EST, [facility]aps[facility], [facility], Partial fill upon patient requestif the [...]
--- OUTSIDE RECORDS SUMMARY | 2024-03-12 10:19 | XMS_ITS | Continuity of Care Document ---
Author Organization [facility] Address [address] [place] [address]- Care Team Providers Care Gold Prospector Name Role Phone Sabine KURTZ, Brittany Roque Primary Care Physicia n [place] [facility] [place] 05/13/20 - 09/10/20 [facility] [address] [place] [address]- Attending Physician: Willow Rondon DO Admitting Physician: Willow Rondon DO Referring Physician: Sabine KURTZ, Brittany Roque Allergies, Adverse Reactions, Alerts Substance Reaction Severity [...]
--- OUTSIDE RECORDS SUMMARY | 2024-03-12 10:19 | XMS_ITS | Continuity of Care Document ---
Author Organization [facility] Address [address] [place], [place] [address], [address] [place] [address]- Care Team Providers Care Roller Mechanic Name Role Phone Ebonyana marianiraj JERARDO, Brittanymunira Roque Primary Care Physicia n En[place] [facility] [place] Date(s): 10/29/21 - 11/05/21 [facility] [address] [place] [address] Drive, [address] [place], [place] [address] Attending Physician: Diaz Zacarias MD Allergies, Adverse Reactions, Alerts No Known Medication [...] opioid drug. Start Date: 06/25/21 Status: Ordered ciprofloxacin 500 mg oral tablet 1 tablet = 500 mg, By Mouth, Every 12 hours, for 10 days, # 20 tablet, 0 Refills, Acute 11/11/21 17:30:00 EST, 11/01/21 17:30:00 EST, [facility]t, [facility], Partial fill upon patient request if the prescription is for a schedule II opioid drug.,... Start Date: 11/01/21 Stop Date: 11/11/21 Status: Ordered docusate sodium 100 mg oral [...] Soft Stop, 08/23/21 13:37:00 EDT, REC Powder, [facility]/pharmacy #1234, Partial fill upon patient request if [...] mg, By Mouth, 3 times a day, WORDPRESS DEVELOPER checked, # 180 capsule, 5 Refills, Maintenance, 07/27/21 11:02:00 EDT, Capsule, [facility]/pharmacy #1234, Partial fill upon patient request if [...] cord injury(Confirmed) Active Spasticity(Confirmed) Active Underweight(Confirmed) Active Vital Signs Most recent to oldest [Reference Range]: 1 Height 180 cm (10/29/21 1:33 PM) Weight 55.0 kg (10/29/21 1:33 PM) Body Mass Index [18.5-24.99] 16.98 *L* (10/29/21 1:33 PM) Social History Social History Type Response Smoking Status Former smoker; Tobac co user in household: No entered on: 03/10/15 Sex
--- OUTSIDE RECORDS SUMMARY | 2024-03-12 10:19 | XMS_ITS | Continuity of Care Document ---
Author Organization [facility] Adult Address [address] [place] [address]- Care Team Providers Care Deck Specialist Name Role Phone Sabine KURTZ, Brittany Roque Primary Care Physicia n [place] [facility] [place]18[place] - 09/17/21 [facility] Adult [address] [place] [address]- Allergies, Adverse Reactions, Alerts No Known Medication [...] Soft Stop, 08/23/21 13:37:00 EDT, REC Powder, [facility]/pharmacy #1234, Partial fill upon patient [...] mg, By Mouth, 3 times a day, SUPERVISOR HOME ENERGY CONSULTANT checked, # 180 capsule, 5 Refills, Maintenance, 07/27/21 11:02:00 EDT, Capsule, [facility]/pharmacy #1234, Partial fill upon patient [...]
--- OUTSIDE RECORDS SUMMARY | 2024-03-12 10:19 | XMS_ITS | Continuity of Care Document ---
Author Organization [facility] Adult Address [address] [place] [address]- Care Team Providers Care Account Contact Associate Name Role Phone Graciela Colon MD Primary Care Physician Encounter [facility] [place] Date(s): 10/23/23 - 11/22/23 [facility] Adult [address] [place] [address]- Allergies, Adverse Reactions, Alerts No Known Allergies [...] Refills, Maintenance, 07/30/23 8:38:00 EDT, [facility], 180, cm, 07/24/23 13:23:00 EDT, Height, 54.5, [...] mg, By Mouth, 3 times a day, MODEL MAKER FIBERGLASS checked, # 90 capsule, 5 Refills, Maintenance, [...] Team Personnel Name: Marifer Aguila RN Position: [facility] RN Member Role: Primary Care Nurse Name: Keiko Erickson RN Position: [facility] RN Supv Member Role: Primary Care Nurse Name: Graciela Colon MD Position: [facility] Physician - Primary Care Member Role: PCP Address: Address: [address] [place] [address] [address] [place] [address]- Care Team Related Persons Name: LES, CARLOSA LBERTO Address: home [address] [place] [address] Name: ALDO OLIVAS Address: home [address] [place] [address]
--- OUTSIDE RECORDS SUMMARY | 2024-03-12 10:19 | XMS_ITS | Continuity of Care Document ---
Author Organization [facility] Adult Address [address] [place] [address]- Care Team Providers Care Brush Machine Setter Name Role Phone Sabine KURTZ, Brittany Roque Primary Care Physicia n [place] [facility] [place] 09/10/21 - 10/10/21 [facility] Adult [address] [place] [address]- Allergies, Adverse Reactions, Alerts No Known Medication [...] Soft Stop, 08/23/21 13:37:00 EDT, REC Powder, [facility]/pharmacy #1234, Partial fill upon patient request [...] mg, By Mouth, 3 times a day, MANAGER RISK MANAGEMENT checked, # 180 capsule, 5 Refills, Maintenance, 07/27/21 11:02:00 EDT, Capsule, [facility]/pharmacy #1234, Partial fill upon patient request [...]
--- OUTSIDE RECORDS SUMMARY | 2024-03-12 10:19 | XMS_ITS | Continuity of Care Document ---
Author Organization [facility] Address [address] [place] [address] [address], [address] [place] [address]- Care Team Providers Care Clinical Data Assistant Name Role Phone Sabine KURTZ, Brittany Roque Primary Care Physicia n Encounter [facility] [place] Date(s): 05/21/21 - 06/20/21 [facility] [address] [place] [address] Drive, [address] [place] [address]- Attending Physician: Redd Delgado Admitting Physician: Redd [...]
--- OUTSIDE RECORDS SUMMARY | 2024-03-12 10:19 | XMS_ITS | Continuity of Care Document ---
Author Organization [facility] Address [address] [place], [place] [address], [address] [place] [address]- Care Team Providers Care Administrative Office Assistant Name Role Phone Sabine KURTZ, Brittany Roque Primary Care Physicia n Encounter [facility] Date(s): 10/29/21 - 11/28/21 [facility] [address] [place] [address] Drive, [address] [place] [address]- Attending Physician: Redd Delgado Admitting Physician: AdmRedd yap Referring Physician: AdmtrRedd Allergies, Adverse Reactions, Alerts No Known Allergies [...] mg, By Mouth, 3 times a day, REGIONAL TRANSPORTATION MANAGER checked, # 180 capsule, 5 Refills, Maintenance, [...]
--- OUTSIDE RECORDS SUMMARY | 2024-03-12 10:20 | XMS_ITS | Continuity of Care Document ---
Author Organization [facility] Adult Address [address] [place] [address]- Care Team Providers Care Paper Feeder Name Role Phone Sabine KURTZ, Brittany Roque Primary Care Physicia n Encounter [facility] Date(s): 08/28/21 - 09/27/21 [facility] Adult [address] [place] [address]- Allergies, Adverse Reactions, Alerts No Known Medication [...] Soft Stop, 08/23/21 13:37:00 EDT, REC Powder, [facility]/pharmacy #[id number], Partial fill upon patient request [...] mg, By Mouth, 3 times a day, DENTAL LABORATORY WORKER checked, # 180 capsule, 5 Refills, Maintenance, 07/27/21 11:02:00 EDT, Capsule, [facility]/pharmacy #1234, Partial fill upon patient request [...]
--- OUTSIDE RECORDS SUMMARY | 2024-03-12 10:20 | XMS_ITS | Continuity of Care Document ---
Author Organization [facility] Adult Address [address] [place] [address]- Care Team Providers Care Artificial Leather Calender Operator Name Role Phone Sabine KURTZ, Brittany Roque Primary Care Physicia n En[place] [facility] Date(s): 07/17/21 - 08/16/21 [facility] Adult [address] [place] [address]- Allergies, Adverse Reactions, Alerts No Known Medication [...] mg, By Mouth, 3 times a day, BOOM MAN checked, # 180 capsule, 5 Refills, Maintenance, 07/27/21 11:02:00 EDT, Capsule, [facility]/pharmacy #1234, Partial fill upon patient request [...]
--- OUTSIDE RECORDS SUMMARY | 2024-03-12 10:20 | XMS_ITS | Continuity of Care Document ---
Author Organization [facility] Adult Address [address] [place] [address]- Care Team Providers Care School Traffic Supervisor Name Role Phone Isaiah SANTACRUZ, Graciela Primary Care Physician Encounter [facility] Date(s): 07/16/22 - 08/15/22 [facility] Adult [address] [place] [address]- Allergies, Adverse Reactions, Alerts No Known Allergies [...] 90 capsule, 1 Refills, Maintenance, 07/29/2219:49:00 EDT, [facility]/pharmacy #1234, 183, cm, 07/25/22 12:44:00 EDT, [...] mg, By Mouth, 3 times a day, MAKE UP OPERATOR HELPER checked, # 90 capsule, 5 Refills, Maintenance, 03/15/22 9:10:00 EDT, Capsule, [facility]/pharmacy #1234, Partial fill upon patient [...] Name: Graciela Colon MD Address: Address: [address] [address]
--- OUTSIDE RECORDS SUMMARY | 2024-03-12 10:20 | XMS_ITS | Continuity of Care Document ---
Author Organization [facility] Adult Address [address] [place] [address]- Care Team Providers Care Mineral Engineer Name Role Phone Sabine KURTZ, Brittany Roque Primary Care Physicia n Encounter [facility] Date(s): 09/06/21 - 09/13/21 [facility] Adult [address] [place] [address]- Encounter Diagnosis Paraplegia following spinal cord injury(Discharge Diagnosis) - 09/06/21 Headache(Discharge Diagnosis) - 09/06/21 Hyperthyroidism(Discharge Diagnosis) - 09/06/21 Neurogenic bladder(Discharge Diagnosis) - 09/06/21 Neurogenic bowel(Discharge Diagnosis) - 09/06/21 Pain, neuropathic(Discharge Diagnosis) - 09/06/21 Attending Physician: Hoda Gomez NP Referring Physician: Hernan Servin MD Allergies, Adverse Reactions, Alerts No Known [...] Soft Stop, 08/23/21 13:37:00 EDT, REC Powder, [facility]/pharmacy #1234, Partial fill upon patient request if [...] mg, By Mouth, 3 times a day, LINING CUTTER checked, # 180 capsule, 5 Refills, Maintenance, 07/27/21 11:02:00 EDT, Capsule, [facility]/pharmacy #1234, Partial fill upon patient request if [...] following spinal cord injury(Confirmed) Active Spasticity(Confirmed) Active Diagnosis Diagnosis Type Effective Dates Health Status Clinical Service Informant Headache Discharge Diagnosis 09/06/21 Hyperthyroidism Discharge Diagnosis 09/06/21 Neurogenic bladder Discharge Diagnosis 09/06/21 Neurogenic bowel Discharge Diagnosis 09/06/21 Pain, neuropathic Discharge Diagnosis 09/06/21 Paraplegia following spinal cord injury Discharge Diagnosis 09/06/21 Vital Signs Most recent to oldest [Reference Range]: 1 Height 180 cm (09/06/21 10:29 AM) Social History Social History Type Response Smoking Status Former smoker; Tobac co user in household: No entered on: 03/10/15 Sex
--- OUTSIDE RECORDS SUMMARY | 2024-03-12 10:20 | XMS_ITS | Continuity of Care Document ---
Author Organization [facility] Adult Address [address] [place] [address]- Care Team Providers Care Laborer Car Barn Name Role Phone Sabine KURTZ, Brittany Roque Primary Care Physicia n En[place] [facility] Date(s): 01/03/22 - 01/10/22 [facility] Adult [address] [place] [address]- Attending Physician: Not on Staff, Attending MD Allergies, Adverse Reactions, Alerts No Known [...] drug. Start Date: 06/25/21 Status: Ordered duloxetine 30 mg oral enteric coated capsule 1 capsule = 30 mg, By Mouth, Daily, # 30 capsule, 0 Refills, Maintenance, 01/03/22 15:45:00 EST, [facility], Partial fill upon patient request if the prescription is for a schedule II opioid drug., 183, cm, 01/03/22 14:43:00 EST, Height, 55, k... Start Date: 01/03/22 Status: Ordered ibuprofen 400 mg oral tablet [...] 0 Refills, Maintenance, 01/03/22 15:39:00 EST, Capsule, [facility], Partial fill upon [...] oldest [Reference Range]: 1 Height 183 cm (01/03/22 2:43 PM) Social History Social History Type Response Smoking Status Former smoker; Tobac co user in household: No entered on: 03/10/15 Sex
--- OUTSIDE RECORDS SUMMARY | 2024-03-12 10:20 | XMS_ITS | Continuity of Care Document ---
Author Organization [facility] Adult Address [address] [place] [address]- Care Team Providers Care Wastewater Treatment Operator Name Role Phone Sabine KURTZ, Brittany Roque Primary Care Physicia n Encounter [facility] Date(s): 07/26/21 - 08/25/21 [facility] Adult [address] [place] [address]- Allergies, Adverse Reactions, Alerts No Known Medication [...] Soft Stop, 08/23/21 13:37:00 EDT, REC Powder, [facility]/pharmacy #1234, Partial fill upon patient request if [...] mg, By Mouth, 3 times a day, MOLDING FITTER checked, # 180 capsule, 5 Refills, Maintenance, 07/27/21 11:02:00 EDT, Capsule, [facility]/pharmacy #1234, Partial fill upon patient request if [...]
--- OUTSIDE RECORDS SUMMARY | 2024-03-12 10:20 | XMS_ITS | Continuity of Care Document ---
Author Organization [facility] Adult Address [address] [place] [address]- Care Team Providers Care Buyer Intern Name Role Phone Sabine KURTZ, Brittany Roque Primary Care Physicia n Encounter [facility] Date(s): 08/29/21 - 09/28/21 [facility] Adult [address] [place] [address]- Allergies, Adverse Reactions, Alerts No Known Medication [...] Soft Stop, 08/23/21 13:37:00 EDT, REC Powder, [facility]/pharmacy #1234, Partial fill upon [...] mg, By Mouth, 3 times a day, PETROLEUM REFINERY OPERATOR checked, # 180 capsule, 5 Refills, Maintenance, 07/27/21 11:02:00 EDT, Capsule, [facility]/pharmacy #1234, Partial [...]
--- OUTSIDE RECORDS SUMMARY | 2024-03-12 10:20 | XMS_ITS | Continuity of Care Document ---
Author Organization [facility] Adult Address [address] [place] [address]- Care Team Providers Care Liability Claims Representative Name Role Phone Graciela Colon MD Primary Care Physician Encounter [facility] Date(s): 05/07/23 - 06/06/23 [facility] Adult [address] [place] [address]- Allergies, Adverse Reactions, Alerts No Known Allergies [...] capsule, 1 Refills, Maintenance, 01/22/23 16:01:00 EDT, [id number], 180, cm, 09/14/22 16:59:00 EST, Height, 54.5, [...] mg, By Mouth, 3 times a day, COAT MAKER checked, # 90 capsule, 5 Refills, Maintenance, 01/16/23 16:32:00 EDT, Capsule, [facility]/pharmacy #1234, Partial fill upon patient request [...] Team Personnel Name: Keiko Erickson RN Position: [facility] RN Supv Member Role: Primary Care Nurse Name: Graciela Colon MD Position: [facility] Physician - Primary Care Member Role: PCP Address: Address: [address]rd [place] [address]- Care Team Related Persons Name: CARLOS ALBERTO SALDANA Address: home [address] [place] [address] Name: ALDO OLIVAS Address: [place] [address] [place] [address]
--- OUTSIDE RECORDS SUMMARY | 2024-03-12 10:20 | XMS_ITS | Continuity of Care Document ---
Author Organization [facility] Adult Address [address] [place] [address]- Care Team Providers Care Retention Manager Name Role Phone Sabine KURTZ, Brittany Roque Primary Care Physicia n En[place] [facility] Date(s): 08/23/21 - 09/22/21 [facility] Adult [address] [place] [address]- Allergies, Adverse Reactions, Alerts No Known Medication [...] Soft Stop, 08/23/21 13:37:00 EDT, REC Powder, [facility]/pharmacy #1234, Partial fill upon [...] mg, By Mouth, 3 times a day, BOTTLE BOOTH ATTENDANT checked, # 180 capsule, 5 Refills, Maintenance, 07/27/21 11:02:00 EDT, Capsule, [facility]/pharmacy #1234, Partial fill upon [...]
--- OUTSIDE RECORDS SUMMARY | 2024-03-12 10:20 | XMS_ITS | Continuity of Care Document ---
Author Organization [facility] Adult Address [address] [place] [address]- Care Team Providers Care Mds Nurse Name Role Phone Graciela Colon MD Primary Care Physician Encounter [facility] Date(s): 07/24/23 - 08/23/23 [facility] Adult [address] [place] [address]- Attending Physician: Redd Delgado Admitting Physician: AdmRedd [...] Refills, Maintenance, 07/30/23 8:38:00 EDT, [facility], 180, cm, 07/24/23 13:23:00 EDT, Height, 54.5, [...] mg, By Mouth, 3 times a day, LINEN ATTENDANT checked, # 90 capsule, 5 Refills, Maintenance, [...] Team Personnel Name: Marifer Aguila RN Position: [facility] RN Member Role: Primary Care Nurse Name: Keiko Erickson RN Position: [facility] RN Supv Member Role: Primary Care Nurse Name: Graciela Colon MD Position: [facility] Physician - Primary Care Member Role: PCP Address: Address: [address] [place] [address] 3rd [place] [address]- Care Team Related Persons Name: CARLOS ALBERTO SALDANA Address: [address] [place] [address] Name: ALDO OLIVAS Address: [place] [address] [place] [address]
--- OUTSIDE RECORDS SUMMARY | 2024-03-12 10:20 | XMS_ITS | Continuity of Care Document ---
Author Organization [facility] Adult Address [address] [place] [address]- Care Team Providers Care Aircraft Rigging And Controls Mechanic Name Role Phone Graciela Colon MD Primary Care Physician Encounter [facility] Date(s): 07/17/23 - 08/16/23 [facility] Adult [address] [place] [address]- Allergies, Adverse Reactions, Alerts No Known Allergies [...] Maintenance, 07/30/23 8:38:00 EDT, [facility] 420[facility], 180, cm, 07/24/23 13:23:00 EDT, Height, 54.5, [...] mg, By Mouth, 3 times a day, RN ACCESS checked, # 90 capsule, 5 Refills, Maintenance, [...] Team Personnel Name: Marifer Aguila RN Position: [facility] RN Member Role: Primary Care Nurse Name: Keiko Erickson RN Position: [facility] RN Supv Member Role: Primary Care Nurse Name: Graciela Colon MD Position: [facility] Physician - Primary Care Member Role: PCP Address: Address: [address] [place] [address] 3rd [place] [address]- Care Team Related Persons Name: CARLOS ALBERTO SALDANA Address: home [address] [place] [address] Name: ALDO OLIVAS Address: home [address] [place] [address]
--- OUTSIDE RECORDS SUMMARY | 2024-03-12 10:20 | XMS_ITS | Continuity of Care Document ---
Author Organization [facility] Adult Address [address] [place] [address]- Care Team Providers Care Finishing Tunnel Operator Name Role Phone Isaiah SANTACRUZ, Graciela Primary Care Physician Encounter [facility] Date(s): 10/29/23 - 11/28/23 [facility] Adult [address] [place] [address]- Allergies, Adverse Reactions, Alerts No Known Allergies [...] Refills, Maintenance, 07/30/23 8:38:00 EDT, [facility], 180, cm, 07/24/23 13:23:00 EDT, Height, 54.5, [...] mg, By Mouth, 3 times a day, TOYS INSPECTOR checked, # 90 capsule, 5 Refills, Maintenance, [...] Team Personnel Name: Marifer Aguila RN Position: [facility] RN Member Role: Primary Care Nurse Name: Keiko Erickson RN Position: [facility] RN Supv Member Role: Primary Care Nurse Name: Graciela Colon MD Position: [facility] Physician - Primary Care Member Role: PCP Address: Address: [address] [place] [address] [address] [place] [address]- Care Team Related Persons Name: LES, CARLOS ALBERTO Address: home [address] [place] [address] Name: ALDO OLIVAS Address: [place] [address] [place] [address]
--- OUTSIDE RECORDS SUMMARY | 2024-03-12 10:20 | XMS_ITS | Continuity of Care Document ---
Author Organization [facility] Adult Address [address] [place] [address]- Care Team Providers Care Stand In Name Role Phone Graciela Colon MD Primary Care Physician [phone] Encounter [facility] Date(s): 02/02/24 - 03/03/24 [facility] Adult [address] [place] [address]- Allergies, Adverse Reactions, Alerts No Known Allergies [...] Daily, # 90 capsule, 1 Refills, Maintenance, 01/15/24 15:08:00 EDT, [facility] 87786, 180, cm, 09/12/23 9:47:00 EST, Height, 54.5, kg, 09/14/22 16:59:00 EST, Dry Weight Start Date: 01/15/24 Status: Ordered magnesium oxide 400 mg oral [...] Maintenance, 09/12/2310:37:00 EST, Route to Pharmacy Electronically, [facility]/pharmacy #1234, Partial fill upon patient request if the prescription is for a schedule II opioid d... Start Date: 09/12/23 Stop Date: 09/06/24 Status: Ordered pregabalin 200 mg oral capsule 1 capsule = 200 mg, By Mouth, 3 times a day, SHOPPING INVESTIGATOR checked, # 90 capsule, 5 Refills, Maintenance, 12/15/23 8:56:00 EST, Capsule, [facility]/pharmacy #1234, Partial fill upon patient request if the prescription is for a schedule II opioid drug., 180, cm, ... Start Date: 12/15/23 Stop Date: 06/12/24 Status: Ordered Senokot 187 mg oral tablet [...] Team Personnel Name: Keiko Erickson RN Position: S RN Supv Member Role: Primary Care Nurse Name: Graciela Colon MD Position: [facility] Physician - Primary Care Member Role: PCP Address: Address: [address] [place] [address] [address] [place] [address]- Care Team Related Persons Name: CARLOS ALBERTO SALDANA Address: home [address] [place] [address] Name: ALDO OLIVAS Address: [place] [address] [place] [address]
--- OUTSIDE RECORDS SUMMARY | 2024-03-12 10:20 | XMS_ITS | Continuity of Care Document ---
Author Organization [facility] Adult Address [address] [place] [address]- Care Team Providers Care Orchard Worker Name Role Phone Sabine KURTZ, Brittany Roque Primary Care Physicia n Encounter [facility] Date(s): 07/03/21 - 08/02/21 [facility] Adult [address] [place] [address]- Allergies, Adverse Reactions, Alerts No Known Medication [...] opioid drug. Start Date: 06/25/21 Status: Ordered Bactrim DS 800 mg-160 mg oral tablet 1 tablet, By Mouth, 2 times a day, for 7 days, # 14 tablet, 0 Refills, Acute 08/08/21 14:05:00 EDT,08/01/21 14:05:00 EDT, Tablet, [facility]/pharmacy #1234, Partial fill upon patient request if the prescription is for a schedule II opioid drug., 1 tablet By... Start Date: 08/01/21 Stop Date: 08/08/21 Status: Ordered ciprofloxacin 500 mg oral tablet 1 tablet = 500 mg, By Mouth, Every 12 hours, # 14 tablet, 0 Refills, Maintenance, 07/17/21 14:54:00EDT, Tablet, [facility], Partial fill upon patient request if the prescription is for a schedule II opioid drug., 180, cm, 07/06/21 13:10:00... Start Date: 07/17/21 Stop Date: 07/24/21 Status: Ordered docusate sodium 100 mg oral [...] mg, By Mouth, 3 times a day, JET WORKER checked, # 180 capsule, 5 Refills, Maintenance, 07/27/21 11:02:00 EDT, Capsule, [facility]/pharmacy #1234, Partial fill upon [...]
--- OUTSIDE RECORDS SUMMARY | 2024-03-12 10:20 | XMS_ITS | Continuity of Care Document ---
Author Organization [facility] Adult Address [address] [place] [address]- Care Team Providers Care Hemmer Automatic Name Role Phone Sabine KURTZ, Brittany Roque Primary Care Physicia n Encounter [facility] [place] Date(s): 12/14/21 - 01/13/22 [facility] Adult [address] [place] [address]- Referring Physician: Breanne Rose Allergies, Adverse Reactions, Alerts No Known Allergies [...]
--- OUTSIDE RECORDS SUMMARY | 2024-03-12 10:20 | XMS_ITS | Continuity of Care Document ---
Author Organization [facility] Address Unknown Care Team Providers Care Fruit Trimmer Name Role Phone Graciela Colon MD Primary Care Physician [place] [facility] [place] 04/11/22 - 05/11/22 [facility] Allergies, Adverse Reactions, Alerts No Known Allergies [...] mg, By Mouth, 3 times a day, RUBBER GOODS TESTER WATER checked, # 90 capsule, 5 Refills, Maintenance, 03/15/22 9:10:00 EDT, Capsule, [facility]/pharmacy #1234, Partial fill upon patient request if [...]
--- OUTSIDE RECORDS SUMMARY | 2024-03-12 10:20 | XMS_ITS | Continuity of Care Document ---
Author Organization [facility] Adult Address [address] [place] [address]- Care Team Providers Care Housing Grant Analyst Name Role Phone Graciela Colon MD Primary Care Physician [phone] [place] [facility] [place]s): 07/03/23 - 08/09/23 [facility] Adult [address] [place] [address]- Attending Physician: Graciela Colon MD Allergies, Adverse [...] capsule, 1 Refills, Maintenance, 07/30/23 8:38:00 EDT, [facility] 96426, 180, cm, 07/24/23 13:23:00 EDT, Height, 54.5, [...] mg, By Mouth, 3 times a day, AWNING FRAME MAKER checked, # 90 capsule, 5 Refills, [...] Team Personnel Name: Marifer Aguila RN Position: [facility] RN Member Role: Primary Care Nurse Name: Keiko Erickson RN Position: [facility] RN Supv Member Role: Primary Care Nurse Name: Graciela Colon MD Position: [facility] Physician - Primary Care Member Role: PCP Address: Address: [address] [place] [address] 3rd [place] [address]- Care Team Related Persons Name: CARLOS ALBERTO SALDANA Address: [place] [address] [place] [address] Name: ALDO OLIVAS Address: [place] [address] [place] [address]
--- OUTSIDE RECORDS SUMMARY | 2024-03-12 10:20 | XMS_ITS | Continuity of Care Document ---
Author Organization [facility] ter Address [address] [place] [address]- Care Team Providers Care Radial Router Operator Name Role Phone Sabine KURTZ, Brittany Mya Primary Care Physicia n Encounter [facility] Date(s): 12/03/21 - 12/03/[address] [address]- Discharge Disposition: A-D/C Home Attending Physician: Luis Antonio Ivy MD, I Admitting Physician: Luis Antonio Ivy MD, I Referring Physician: Luis Antonio Ivy MD, I Allergies, Adverse Reactions, Alerts No Known Allergies [...] mg, By Mouth, 3 times a day, PARKING LOT SIGNALER checked, # 180 capsule, 5 Refills, Maintenance, [...] oldest [Reference Range]: 1 2 3 Height 183 cm (12/03/21 8:48 AM) 183 cm (11/21/21 10:36 AM) Weight 55 kg (12/03/21 8:48 AM) 55 kg (11/21/21 10:36 AM) Oxygen Saturation [94-100 %] 100 % (12/03/21 10:15 AM) 100 % (12/03/21 10:00 AM) 100 % (12/03/21 9:45 AM) Pulse Rate [55-90 bpm] 70 bpm (12/03/21 8:48 AM) Body Mass Index [18.5-24.99] 16.42 *L* (12/03/21 8:48 AM) 16.42 *L* (11/21/21 10:36 AM) Blood Pressure [90-138/55-84 mm Hg] 113/76mm Hg (12/03/21 10:15 AM) 113/76mm Hg (12/03/21 10:00 AM) 110/64mm Hg (12/03/21 9:45 AM) Respiratory Rate [16-30 br/min] 21 br/min (12/03/21 10:15 AM) 16 br/min (12/03/21 10:00 AM) 11 br/min *L* (12/03/21 9:45 AM) Temperature [96.8-100.4 DegF] 97.2 DegF (12/03/21 10:15 AM) 97.6 DegF (12/03/21 9:45 AM) 99 DegF (12/03/21 8:48 AM) Liters per Minute 6 L/min (12/03/21 9:45 AM) Mode of Delivery (Oxygen) Room air (12/03/21 10:15 AM) Room air (12/03/21 10:00 AM) Simple face mask (12/03/21 9:45 AM) Blood pressure sites Arm, right (12/03/21 10:15 AM) Arm, right (12/03/21 10:00 AM) Arm, right (12/03/21 9:45 AM) Temperature Route Temporal (12/03/21 10:15 AM) Temporal (12/03/21 9:45 AM) Temporal (12/03/21 8:48 AM) Dry Weight 55 kg (11/21/21 10:36 AM) Weight Obtained Via Patient/family state d (11/21/21 10:36 AM) Dry Weight Obtained Via Patient/family s tated (11/21/21 10:36 AM) Social History Social History Type Response Smoking Status Former smoker; Tobac co user in household: No entered on: 03/10/15 Sex
--- OUTSIDE RECORDS SUMMARY | 2024-03-12 10:20 | XMS_ITS | Continuity of Care Document ---
Author Organization [facility] Adult Address [address] [place] [address]- Care Team Providers Care Plaster Maker Name Role Phone Sabine KURTZ, Brittany Roque Primary Care Physicia n Encounter [facility] Date(s): 04/03/21 - 05/03/21 [facility] Adult [address] [place] [address]- Allergies, Adverse Reactions, Alerts No Known Medication [...]
--- OUTSIDE RECORDS SUMMARY | 2024-03-12 10:21 | XMS_ITS | Continuity of Care Document ---
Author Organization [facility] Address [address] [place], [place] [address]te[address], [address] [place] [address]- Care Team Providers Care Enrobing Machine Operator Name Role Phone Sabine KURTZ, Brittany Roque Primary Care Physicia n [place] [facility] [place] 04/19/21 - 05/19/21 [facility] [address] [place] [address], [address] [place] [address]- Allergies, Adverse Reactions, Alerts No Known Medication [...]
--- OUTSIDE RECORDS SUMMARY | 2024-03-12 10:21 | XMS_ITS | Continuity of Care Document ---
Author Organization [facility] Adult Address [address] [place] [address]- Care Team Providers Care Hemodialysis Rn Name Role Phone Isaiah SANTACRUZ, Graciela Primary Care Physician [phone] Encounter [facility] Date(s): 09/03/23 - 10/03/[address] [facility] Adult [address] [place] [address]- Allergies, Adverse Reactions, Alerts No Known Allergies [...] Refills, Maintenance, 07/30/23 8:38:00 EDT, [facility], 180, cm, 07/24/23 13:23:00 EDT, Height, 54.5, [...] mg, By Mouth, 3 times a day, PLANIMETER OPERATOR checked, # 90 capsule, 5 Refills, [...] Team Personnel Name: Marifer Aguila RN Position: [facility] RN Member Role: Primary Care Nurse Name: Keiko Erickson RN Position: [facility] RN Supv Member Role: Primary Care Nurse Name: Graciela Colon MD Position: [facility] Physician - Primary Care Member Role: PCP Address: Address: [address] [place] [address] [address] [place] [address]- Care Team Related Persons Name: LES, CARLOS ALBERTO Address: home [address] [place] [address] Name: ALDO OLIVAS Address: [place] [address] [place] [address]
--- OUTSIDE RECORDS SUMMARY | 2024-03-12 10:21 | XMS_ITS | Continuity of Care Document ---
Author Organization [facility] Adult Address [address] [place] [address]- Care Team Providers Care Firewall Security Engineer Name Role Phone Graciela Colon MD Primary Care Physician [phone] [place] [facility] [place](s): 01/16/23 - 02/15/23 [facility] Adult [address] [place] [address]- Allergies, Adverse Reactions, Alerts No Known Allergies [...] capsule, 1 Refills, Maintenance, 01/22/23 16:01:00 EDT, [id number], 180, cm, 09/14/22 16:59:00 EST, Height, 54.5, [...] mg, By Mouth, 3 times a day, CORPORATE CLAIMS EXAMINER checked, # 90 capsule, 5 Refills, Maintenance, 01/16/23 16:32:00 EDT, [facility]aps[facility], [id number], Partial fill upon [...] Care Team Personnel Name: Lucy Wise Position: [facility] RN Member Role: Primary Care Nurse Name: Keiko Erickson RN Position: [facility] Supv Member Role: Primary Care Nurse Name: Graciela Colon MD Position: [facility] Primary Care Physician Member Role: PCP Address: Address: [address] 3rd [place] [address]- Care Team Related Persons Name: CARLOS ALBERTO SALDANA Address: home [address] [place] [address] Name: ALDO OLIVAS Address: home [address] [place] [address]
--- OUTSIDE RECORDS SUMMARY | 2024-03-12 10:21 | XMS_ITS | Continuity of Care Document ---
Author Organization [facility] Adult Address [address] [place] [address]- Care Team Providers Care Preschool Disability Teacher Name Role Phone Graciela Colon MD Primary Care Physician [phone] Encounter [facility] Date(s): 09/06/22 - 10/06/22 [facility] Adult [address] [place] [address]- Allergies, Adverse Reactions, Alerts No Known Allergies [...] 90 capsule, 1 Refills, Maintenance, 07/29/2219:49:00 EDT, [facility]/pharmacy #[id number], 183, cm, 07/25/22 12:44:00 EDT, [...] mg, By Mouth, 3 times a day, PROFESSOR OF MECHANICAL ENGINEERING checked, # 90 capsule, 5 Refills, Maintenance, [...] Care Team Personnel Name: Lucy Wise Position: [facility] RN Member Role: Primary Care Nurse Name: Marifer Aguila RN Position: S RN Member Role: Primary Care Nurse Name: Keiko Erickson RN Position: [facility] RN Member Role: Primary Care Nurse Name: Graciela Colon MD Position: [facility] Primary Care Physician Member Role: PCP Address: Address: [address] [place] [address] [address] [place] [address]- Care Team Related Persons Name: CARLOS ALBERTO SALDANA Address: home [address] [place] [address] Name: ALDO OLIVAS Address: home [address] [place] [address]
--- OUTSIDE RECORDS SUMMARY | 2024-03-12 10:21 | XMS_ITS | Continuity of Care Document ---
Author Organization [facility] Adult Address [address] [place] [address]- Care Team Providers Care Compensation Manager Name Role Phone Sabine KURTZ, Brittany Roque Primary Care Physicia n [id number] Date(s): 11/01/21 - 12/01/[address] [facility] Adult [address] [place] [address]- Allergies, Adverse Reactions, Alerts No Known Allergies [...] mg, By Mouth, 3 times a day, DRIVER RETRAINING INSTRUCTOR checked, # 180 capsule, 5 Refills, Maintenance, [...]
--- OUTSIDE RECORDS SUMMARY | 2024-03-12 10:21 | XMS_ITS | Continuity of Care Document ---
Author Organization [facility] Address [address] [place] [address]- Care Team Providers Care Ring Making Machine Operator Name Role Phone Sabine KURTZ, Brittanymunira Roque Primary Care Physicia n Encounter 12/12/21 - 02/07/22 [facility] [address], [address] [place] [address]- Attending Physician: Diaz Zacarias MD Admitting Physician: Diaz Zacarias MD Referring Physician: Diaz Zacarias MD Allergies, Adverse Reactions, [...] 1 Refills, Maintenance, 01/14/22 14:36:00 EDT, ECCapsule, [facility]/pharmacy #[id number], Partial fill upon patient request [...] 0 Refills, Maintenance, 01/03/22 15:39:00 EST, Capsule, [facility]/pharmacy #1234, Partial fill upon patient request if the prescription is for a schedule II opioid drug., 183, c... Start Date: 01/03/22 Stop Date: 02/02/22 Status: Ordered pregabalin 25 mg oral capsule 3 capsule = 75 mg, By Mouth, 3 times a day, Take with the 100 mg capsules, # 270 capsule, 0 Refills, Maintenance, 01/03/22 15:42:00 EST, Capsule, [facility]/pharmacy #1234, Partial fill upon patient requestif [...]
--- OUTSIDE RECORDS SUMMARY | 2024-03-12 10:21 | XMS_ITS | Continuity of Care Document ---
Author Organization [facility] Adult Address [address] [place] [address]- Care Team Providers Care Revenue Director Name Role Phone Graciela Colon MD Primary Care Physician [place] [facility] [place](s): 09/09/22 - 10/09/22 [facility] Adult [address] [place] [address]- Allergies, Adverse Reactions, Alerts No Known Allergies [...] 90 capsule, 1 Refills, Maintenance, 07/29/2219:49:00 EDT, [facility]/pharmacy #[id number], 183, cm, 07/25/22 12:44:00 EDT, [...] mg, By Mouth, 3 times a day, REVENUE CYCLE ANALYST checked, # 90 capsule, 5 Refills, [...] Care Team Personnel Name: Lucy Wise Position: [facility] RN Member Role: Primary Care Nurse Name: Marifer Aguila RN Position: S RN Member Role: Primary Care Nurse Name: Keiko Erickson RN Position: [facility] RN Member Role: Primary Care Nurse Name: Graciela Colon MD Position: [facility] Primary Care Physician Member Role: PCP Address: Address: [address] [place] [address] [address] [place] [address]- Care Team Related Persons Name: CARLOS ALBERTO SALDANA Address: home [address] [place] [address] Name: ALDO OLIVAS Address: home [address] [place] [address]
--- OUTSIDE RECORDS SUMMARY | 2024-03-12 10:21 | XMS_ITS | Continuity of Care Document ---
Author Organization [facility] Adult Address [address] [place] [address]- Care Team Providers Care Director Of The Biophysics Facility Name Role Phone Sabine KURTZ, Brittany Roque Primary Care Physicia n [place] [facility] [place](s): 08/01/21 - 08/31/21 [facility] Adult [address] [place] [address]- Allergies, Adverse Reactions, Alerts No Known Medication [...] opioid drug. Start Date: 06/25/21 Status: Ordered doxycycline hyclate 100 mg oral tablet 1 tablet = 100 mg, By Mouth, 2 times a day, for 10 days, # 20 tablet, 0 Refills, Acute 09/09/21 12:40:00 EST, 08/30/21 12:40:00 EDT, [id number], Partial fill upon patient request if the prescription is for a schedule II opioid drug., 180, cm,... Start Date: 08/30/21 Stop Date: 09/09/21 Status: Ordered fosfomycin 3 gm oral powder for reconstitution 1 pack/packet, By Mouth, Once, dissolve in water before taking, # 3 Gm, 0 Refills, Soft Stop, 08/23/21 13:37:00 EDT, REC Powder, [facility], Partial fill upon patient request [...] Mouth, 3 times a day, PROFESSOR OF ARCHITECTURE checked, # 180 capsule, 5 Refills, Maintenance, [...]
--- OUTSIDE RECORDS SUMMARY | 2024-03-12 10:21 | XMS_ITS | Continuity of Care Document ---
Author Organization [facility] Adult Address [address] [place] [address]- Care Team Providers Care Tack Puller Machine Name Role Phone Sabine KURTZ, Brittany Roque Primary Care Physicia n En[place] [facility] Date(s): 09/03/21 - 10/03/21 [facility] Adult [address] [place] [address]- Allergies, Adverse Reactions, Alerts No Known Medication [...] Soft Stop, 08/23/21 13:37:00 EDT, REC Powder, [facility]/pharmacy #1234, Partial fill upon patient request [...] mg, By Mouth, 3 times a day, RECONCILIATION MACHINE OPERATOR checked, # 180 capsule, 5 Refills, Maintenance, 07/27/21 11:02:00 EDT, Capsule, [facility]/pharmacy #[id number], Partial fill upon patient request [...]
--- OUTSIDE RECORDS SUMMARY | 2024-03-12 10:21 | XMS_ITS | Continuity of Care Document ---
Author Organization [facility] Adult Address [address] [place] [address]- Care Team Providers Care Painting Contractor Name Role Phone Sabine KURTZ, Brittany Roque Primary Care Physicia n Encounter [facility] Date(s): 09/13/21 - 10/13/21 [facility] Adult [address] [place] [address]- Allergies, Adverse Reactions, Alerts No Known Medication [...] Soft Stop, 08/23/21 13:37:00 EDT, REC Powder, [facility]/pharmacy #1234, [...] mg, By Mouth, 3 times a day, MAGAZINE FILLER checked, # 180 capsule, 5 Refills, Maintenance, 07/27/21 11:02:00 EDT, Capsule, [facility]/pharmacy [...]
--- OUTSIDE RECORDS SUMMARY | 2024-03-12 10:21 | XMS_ITS | Continuity of Care Document ---
Author Organization [facility] Address [address] [place], [place] [address], [address] [place] [address]- Care Team Providers Care Coloring Checker Name Role Phone Sabine KURTZ, Brittany Roque Primary Care Physicia n [place] [facility] [place] 04/19/21 - 06/20/21 [facility] [address] [place] [address] Drive, [address] [place] [address]- Attending Physician: Deann SANTACRUZ, Diaz Allergies, Adverse Reactions, Alerts No Known Medication [...]
--- OUTSIDE RECORDS SUMMARY | 2024-03-12 10:21 | XMS_ITS | Continuity of Care Document ---
Author Organization [facility] Address Unknown Care Team Providers Care Inspector Repairer Name Role Phone Graciela Colon MD Primary Care Physician [place] [facility] [place] 04/17/22 - 05/17/22 [facility] Allergies, Adverse Reactions, [...] mg, By Mouth, 3 times a day, DIRECTOR OF STAFF DEVELOPMENT checked, # 90 capsule, 5 Refills, Maintenance, 03/15/22 9:10:00 EDT, Capsule, [facility]/pharmacy #[id number], Partial fill upon patient request [...]
--- OUTSIDE RECORDS SUMMARY | 2024-03-12 10:22 | XMS_ITS | Continuity of Care Document ---
Author Organization [facility] Adult Address [address] [place] [address]- Care Team Providers Care Land Measurer Name Role Phone Sabine KURTZ, Brittany Roque Primary Care Physicia n [place] [facility] [place] 02/13/22 - 03/15/22 [facility] Adult [address] [place] [address]- Allergies, Adverse Reactions, Alerts No Known Allergies [...] mg, By Mouth, 3 times a day, TECHNICAL HEALTHCARE CONSULTANT checked, # 90 capsule, 5 Refills, Maintenance, 03/15/22 9:10:00 EDT, Capsule, [facility]/pharmacy #[id number], Partial fill upon patient [...]
--- OUTSIDE RECORDS SUMMARY | 2024-03-12 10:22 | XMS_ITS | Continuity of Care Document ---
Author Organization [facility] Adult Address [address] [place] [address]- Care Team Providers Care Optometry Doctor Name Role Phone Graciela Colon MD Primary Care Physician [phone] [place] [facility] [place](s): 09/02/23 - 09/09/23 [facility] Adult [address] [place] [address]- Encounter Diagnosis Annual physical exam(Discharge Diagnosis) - 09/02/23 Paraplegia, incomplete(Discharge Diagnosis) - 09/02/23 Hyperthyroidism(Discharge Diagnosis) - 09/02/23 Anemia(Discharge Diagnosis) - 09/02/23 Neurogenic bladder(Discharge Diagnosis) - 09/02/23 Attending Physician: Graciela Colon MD Allergies, Adverse [...] Refills, Maintenance, 07/30/23 8:38:00 EDT, [facility], 180, cm, 07/24/23 13:23:00 EDT, Height, 54.5, [...] mg, By Mouth, 3 times a day, CANDLE CUTTER checked, # 90 capsule, 5 Refills, Maintenance, [...] Effective Dates Health Status Clinical Service Informant Annual physical exam Discharge Diagnosis 09/02/23 Paraplegia, incomplete Discharge Diagnosis 09/02/23 Hyperthyroidism Discharge Diagnosis 09/02/23 Anemia Discharge Diagnosis 09/02/23 Neurogenic bladder Discharge Diagnosis 09/02/23 Vital Signs Most recent to oldest [Reference Range]: 1 Height 180 cm (09/02/23 9:52 AM) Weight 54.5 kg (09/02/23 9:52 AM) Oxygen Saturation [94-100 %] 97 % (09/02/23 9:52 AM) Pulse Rate [55-90 bpm] 61 bpm (09/02/23 9:52 AM) Body Mass Index [18.5-24.99 kg/m2] 16.82 kg/m2 *L* (09/02/23 9:52 AM) Blood Pressure [90-138/55-84 mm Hg] 101/ 56mm Hg (09/02/23 9:52 AM) Temperature [96.8-100.4 DegF] 98 DegF (09/02/23 9:52 AM) Mode of Delivery (Oxygen) Room air (09/02/23 9:52 AM) Blood pressure sites Arm, left (09/02/23 9:52 AM) Temperature Route Oral (09/02/23 9:52 AM) Weight Obtained Via Standing scale (09/02/23 9:52 AM) Social History Social History Type Response Tobacco Other: quit at 22. Sex Note * Janae Blackman: PERFORM, SIGN, VERIFY Event Display: Patient Education/Instruction Authored Date: [id number] [facility] *[facility] Clinical Summary Name TOMMY LYNCH Age 32 Years 1990 PCP Graciela Colon MD PCP Visit Date 09/02/2023 09:25:00 Additional Instructions: Scheduled Appointments?? Future Appointments ?No Future Appointments Scheduled Follow-Up Instructions ?? With: Address: When: Graciela Colon MD 09/02/2023 12:00 AM Comments: annual 1 yr Diagnosis Paraplegia, incomplete; Neuromuscular dysfunction of bladder, unspecified; Anemia, unspecified; Encounter for general adult medical examination without abnormal findings; Thyrotoxicosis, unspecified without thyrotoxic crisis or storm Medications: Please continue your medications until treatment [...] 3 times a day for 30 Days. CANDLE CUTTER checked. Refills: 5. Next Dose: Senna (Senokot 187 mg oral tablet) 2 tab(s) Oral Daily at Bedtime as needed for constipation. Next Dose: Allergy Info:?? No Known Medication Allergies; NKA Medications Given This Visit Future Orders ?CBC? Order Date:09/02/23?- Complete on or after?09/02/23 ?TSH with T4 Reflex (Adults Only)? Order Date:09/02/23?- Complete on or after?09/02/23 ?Comprehensive Metabolic Panel? Order Date:09/02/23?- Complete on or after?09/02/23 Vital Signs Height 180 cm Weight 54.5 kg BMI 16.82 kg/m2 Blood Pressure 101 mm Hg/56 mm Hg Temperature 98 DegF Pulse Rate 61 bpm Respiratory Rate 02 Sat Mode of Delivery 97 %/Room air You can now view a summary of your hospital visit from the comfort of your home through a free online portal called [employer]. We[employer] is a website that allows you to securely view your medical information including discharge summary, medications and follow-up visits. ??You can alsosend a secure electronic message to your doctor???s office to request appointments, renew medications or just ask a question. You can enroll at [email or web address] or register during your next office visit. [...] primary care provider, you may find a [facility] provider by calling [facility] Link at [phone]. [facility], in keeping with [facility] guidance, no longer requires face masks [...] Care Nurse Name: Graciela Colon MD Position: [facility] Physician - Primary Care Member Role: PCP Address: Address: [address] [place] [address] [address] [place] [address]- [place] Care Team Related Persons Name: CARLOS ALBERTO SALDANA Address: home [address] [place] [address] Name: ALDO OLIVAS Address: [place] [address] [place] [address]
--- OUTSIDE RECORDS SUMMARY | 2024-03-12 10:22 | XMS_ITS | Continuity of Care Document ---
Author Organization [facility] Adult Address [address] [place] [address]- Care Team Providers Care Manager Beverage Name Role Phone Isaiah SANTACRUZ, Graciela Primary Care Physician [place] [facility] [place](s): 07/04/22 - 08/03/22 [facility] Adult [address] [place] [address] Allergies, Adverse Reactions, Alerts No Known [...] 90 capsule, 1 Refills, Maintenance, 07/29/2219:49:00 EDT, [facility]/pharmacy #[id number], 183, cm, 07/25/22 12:44:00 [...] mg, By Mouth, 3 times a day, SENIOR WIND TURBINE TECHNICIAN checked, # 90 capsule, 5 Refills, Maintenance, 03/15/22 9:10:00 EDT, Capsule, [facility]/pharmacy #[id number], Partial fill upon patient [...] Personnel Name: Graciela Colon MD Address: Address: [address] [place] [address] [address] [place] [address]- [place]
--- OUTSIDE RECORDS SUMMARY | 2024-03-12 10:22 | XMS_ITS | Continuity of Care Document ---
Author Organization [facility] Address Unknown Care Team Providers Care Science Technicians Name Role Phone Sabine KURTZ, Brittany Roque Primary Care Physicia n Encounter [facility] Date(s): 09/06/21 - 09/13/21 [facility] Encounter Diagnosis Closed burst fracture of lumbar vertebra(Discharge Diagnosis) - 09/08/21 Paraplegia following spinal cord injury(Discharge Diagnosis) - 09/08/21 Neurogenic bladder(Discharge Diagnosis) - 09/08/21 Neurogenic bowel(Discharge Diagnosis) - 09/08/21 Pain, neuropathic(Discharge Diagnosis) - 09/08/21 Back pain(Discharge Diagnosis) - 09/08/21 Attending Physician: Marline SANTACRUZ, Michel Benedict Referring Physician: Sabine KURTZ, Brittany Roque Allergies, Adverse Reactions, Alerts No Known Medication [...] By Mouth, 3 times a day, REVENUE ENFORCEMENT AGENT checked, # 180 capsule, 5 Refills, Maintenance, [...] Effective Dates Health Status Clinical Service Informant Closed burst fracture of lumbar vertebra Discharge Diagnosis 09/08/21 Paraplegia following spinal cord injury Discharge Diagnosis 09/08/21 Neurogenic bladder Discharge Diagnosis 09/08/21 Neurogenic bowel Discharge Diagnosis 09/08/21 Pain, neuropathic Discharge Diagnosis 09/08/21 Back pain Discharge Diagnosis 09/08/21 Vital Signs Most recent to oldest [Reference Range]: 1 Height 180 cm (09/06/21 2:45 PM) Weight 55.0 kg (09/06/21 2:45 PM) Oxygen Saturation [94-100 %] 98 % (09/06/21 2:45 PM) Pulse Rate [55-90 bpm] 65 bpm (09/06/21 2:45 PM) Body Mass Index [18.5-24.99] 16.98 *L* (09/06/21 2:45 PM) Blood Pressure [90-138/55-84 mm Hg] 123/ 75mm Hg (09/06/21 2:45 PM) Temperature [96.8-100.4 DegF] 97.8 DegF (09/06/21 2:45 PM) Mode of Delivery (Oxygen) Room air (09/06/21 2:45 PM) Blood pressure sites Arm, left (09/06/21 2:45 PM) Temperature Route Temporal (09/06/21 2:45 PM) Dry Weight 55.0 kg (09/06/21 2:45 PM) Social History Social History Type Response Smoking Status Former smoker; Tobac co user in household: No entered on: 03/10/15 Sex
--- OUTSIDE RECORDS SUMMARY | 2024-03-12 10:22 | XMS_ITS | Continuity of Care Document ---
Author Organization [facility] Adult Address [address] [place] [address]- Care Team Providers Care Movie Actor Name Role Phone Graciela Colon MD Primary Care Physician [place] [facility] [place] 09/13/22 - 10/13/22 [facility] Adult [address] [place] [phone]- Allergies, Adverse Reactions, Alerts No Known Allergies [...] 90 capsule, 1 Refills, Maintenance, 07/29/2219:49:00 EDT, [facility]/pharmacy #[id number], 183, cm, 07/25/22 12:44:00 EDT, [...] mg, By Mouth, 3 times a day, TAPPER BALANCE WHEEL SCREW HOLE checked, # 90 capsule, 5 Refills, Maintenance, [...] Care Team Personnel Name: Lucy Wise Position: [facility] RN Member Role: Primary Care Nurse Name: Marifer Aguila RN Position: S RN Member Role: Primary Care Nurse Name: Keiko Erickson RN Position: [facility] RN Member Role: Primary Care Nurse Name: Graciela Colon MD Position: [facility] Primary Care Physician Member Role: PCP Address: Address: [address] [place] [address] [address] [place] [address]- Care Team Related Persons Name: CARLOS ALBERTO SALDANA Address: [address] [place] [address] Name: ALDO OLIVAS Address: [place] [address] [place] [address]
--- OUTSIDE RECORDS SUMMARY | 2024-03-12 10:22 | XMS_ITS | Continuity of Care Document ---
Author Organization [facility] Adult Address [address] [place] [address]- Care Team Providers Care Communications Technologist Name Role Phone Sabine KURTZ, Brittany Roque Primary Care Physicia n Encounter [facility] Date(s): 02/14/22 - 02/21/22 [facility] Adult [address] [place] [phone]- Encounter Diagnosis Pain, neuropathic(Discharge Diagnosis) - 02/14/22 Paraplegia following spinal cord injury(Discharge Diagnosis) - 02/14/22 Attending Physician: Not on Staff, Attending MD [...] 1 Refills, Maintenance, 01/14/22 14:36:00 EDT, ECCapsule, [facility]/pharmacy #1234, Partial fill upon patient request [...] mg, By Mouth, 3 times a day, Increase in dose, # 90 capsule, 0 Refills, Maintenance, 02/13/22 15:33:00 EDT, Capsule, [facility]/pharmacy #1234, Partial fill upon patient request if the prescription is for a schedule II opioid drug., 183, cm,... Start Date: 02/13/22 Status: Ordered Senokot 187 mg oral tablet [...] cord injury(Confirmed) Active Spasticity(Confirmed) Active Underweight(Confirmed) Active Diagnosis Diagnosis Type Effective Dates Health Status Clinical Service Informant Pain, neuropathic Discharge Diagnosis 02/14/22 Paraplegia following spinal cord injury Discharge Diagnosis 02/14/22 Vital Signs Most recent to oldest [Reference Range]: 1 Height 183 cm (02/14/22 2:06 PM) Weight 54 kg (02/14/22 2:06 PM) Body Mass Index [18.5-24.99] 16.12 *L* (02/14/22 2:06 PM) Weight Obtained Via Patient/family state d (02/14/22 2:06 PM) Social History Social History Type Response Smoking Status Former smoker; Tobac co user in household: No entered on: 03/10/15 Sex
--- OUTSIDE RECORDS SUMMARY | 2024-03-12 10:22 | XMS_ITS | Continuity of Care Document ---
Author Organization [facility] Adult Address [address] [place] [address]- Care Team Providers Care Admin Assistant Name Role Phone Sabine KURTZ, Brittany Roque Primary Care Physicia n Encounter [facility] [place] Date(s): 02/04/22 - 02/11/22 [facility] Adult [address] [place] [address]- Encounter Diagnosis Edema of left foot(Discharge Diagnosis) - 02/04/22 Attending Physician: Not on Staff, Attending MD Referring Physician: Sabine KURTZ, Brittany Roque Allergies, Adverse Reactions, Alerts No Known Allergies [...] 1 Refills, Maintenance, 01/14/22 14:36:00 EDT, ECCapsule, [facility]/pharmacy #[id number], Partial fill upon [...] Diagnosis Diagnosis Type Effective Dates Health Status Cl inical Service Informant Edema of left foot Discharge Diagnosis 02/04/22 Vital Signs Most recent to oldest [Reference Range]: 1 Height 183 cm (02/04/22 1:15 PM) Social History Social History Type Response Smoking Status Former smoker; Tobac co user in household: No entered on: 03/10/15 Sex
--- OUTSIDE RECORDS SUMMARY | 2024-03-12 10:22 | XMS_ITS | Continuity of Care Document ---
Author Organization [facility] Address [address] [place] [address] liu, [address] [place] [address]- Care Team Providers Care Entomology Teacher Name Role Phone Sabine KURTZ, Brittany Roque Primary Care Physicia n [place] [facility] [place] 12/05/21 - 02/07/22 [facility] [address] [place] [address], [address] [place] [address]- Attending Physician: Deann SANTACRUZ, Diaz Allergies, Adverse Reactions, Alerts No Known Allergies [...]
--- OUTSIDE RECORDS SUMMARY | 2024-03-12 10:22 | XMS_ITS | Continuity of Care Document ---
Author Organization [facility] Address [address] [place] [address] liu, [address] [place] [address]- Care Team Providers Care Janitorial Manager Name Role Phone Sabine KURTZ, Brittany Roque Primary Care Physicia n [place] [facility] [place] - 02/07/22 [facility] [address] [place] [address] Drive, [address] [place] [address]- Attending Physician: Redd Delgado Admitting Physician: Redd [...] Refills, Maintenance, 01/14/22 14:36:00 EDT, ECCapsule, [facility]/pharmacy #[id number], Partial fill upon patient request if [...] 0 Refills, Maintenance, 01/03/22 15:39:00 EST, Capsule, [facility]/pharmacy #[id number], Partial fill upon patient request if [...]
--- OUTSIDE RECORDS SUMMARY | 2024-03-12 10:22 | XMS_ITS | Continuity of Care Document ---
Author Organization [facility] Adult Address [address] [place] [address]- Care Team Providers Care Technical Spec Name Role Phone Sabine KURTZ, Brittany Roque Primary Care Physicia n [id number] Date(s): 07/10/21 - 08/09/21 [facility] Adult [address] [place] [address]- Allergies, Adverse Reactions, Alerts No Known Medication [...] 08/11/21 16:50:00 EDT, 08/04/21 16:50:00 EDT, Tablet, [facility]/pharmacy #[id number], Partial fill upon patient request [...] mg, By Mouth, 3 times a day, INSTRUCTIONAL DESIGNER checked, # 180 capsule, 5 Refills, Maintenance, 07/27/21 11:02:00 EDT, Capsule, [facility]/pharmacy #[id number], Partial fill upon patient request [...]
--- OUTSIDE RECORDS SUMMARY | 2024-03-12 10:22 | XMS_ITS | Continuity of Care Document ---
Author Organization [facility] Adult Address [address] [place] [address]- Care Team Providers Care Waste Cotton Cleaner Name Role Phone Graciela Colon MD Primary Care Physician [place] [facility] [place]23 - 09/07/23 [facility] Adult [address] [place] [address]- Allergies, Adverse Reactions, Alerts No Known Allergies [...] Refills, Maintenance, 07/30/23 8:38:00 EDT, [id number], 180, cm, 07/24/23 13:23:00 EDT, Height, 54.5, [...] mg, By Mouth, 3 times a day, DROPHAMMER OPERATOR checked, # 90 capsule, 5 Refills, [...] Care Nurse Name: Graciela Colon MD Position: [facility] Physician - Primary Care Member Role: PCP Address: Address: [address] [place] [address] 3rd [place] [address]- Care Team Related Persons Name: CARLOS ALBERTO SALDANA Address: home [address] [place] [address] Name: ALDO OLIVAS Address: [place] [address] [place] [address]
--- OUTSIDE RECORDS SUMMARY | 2024-03-12 10:22 | XMS_ITS | Continuity of Care Document ---
Author Organization [facility] Adult Address [address] [place] [address]- Care Team Providers Care Laborer Salvage Name Role Phone Graciela Colon MD Primary Care Physician En[place] [facility] [place] Date(s): 09/12/22 - 10/12/22 [facility] Adult [address] [place] [address]- Attending Physician: Redd Delgado Admitting Physician: AdmRedd [...] mg, By Mouth, 3 times a day, SEMICONDUCTOR TECHNICIAN checked, # 90 capsule, 5 Refills, [...] Care Team Personnel Name: Lucy Wise Position: [facility] RN Member Role: Primary Care Nurse Name: Marifer Aguila RN Position: [facility] RN Member Role: Primary Care Nurse Name: Keiko Erickson RN Position: [facility] RN Member Role: Primary Care Nurse Name: Graciela Colon MD Position: [facility] Primary Care Physician Member Role: PCP Address: Address: [address] [place] [address] 3rd [place] [address]- Care Team Related Persons Name: CARLOS ALBERTO SALDANA Address: home [address] [place] [address] Name: ALDO OLIVAS Address: [place] [address] [place] [address]
--- OUTSIDE RECORDS SUMMARY | 2024-03-12 10:22 | XMS_ITS | Continuity of Care Document ---
Author Organization [facility] Adult Address [address] [place] [address]- Care Team Providers Care Machine Printer Name Role Phone Isaiah SANTACRUZ, Graciela Primary Care Physician [place] [facility] [place] 01/15/24 - 02/14/24 [facility] Adult [address] [place] [address]- Allergies, Adverse Reactions, Alerts No Known Allergies [...] capsule, 1 Refills, Maintenance, 01/15/24 15:08:00 EDT, [facility], 180, cm, 09/12/23 9:47:00 EST, Height, 54.5, [...] Maintenance, 09/12/2310:37:00 EST, Route to Pharmacy Electronically, [facility]/pharmacy #[id number], Partial fill upon patient request if the prescription is for a schedule II opioid d... Start Date: 09/12/23 Stop Date: 09/06/24 Status: Ordered pregabalin 200 mg oral capsule 1 capsule = 200 mg, By Mouth, 3 times a day, MANAGER BUILDING checked, # 90 capsule, 5 Refills, Maintenance, 12/15/23 8:56:00 EST, Capsule, [facility]/pharmacy #[id number], Partial fill upon patient request [...] Team Personnel Name: Keiko Erickson RN Position: [facility] RN Supv Member Role: Primary Care Nurse Name: Graciela Colon MD Position: [facility] Physician - Primary Care Member Role: PCP Address: Address: [address] [place] [address] [address] [place] [address]- Care Team Related Persons Name: CARLOS ALBERTO SALDANA Address: home [address] [place] [address] Name: ALDO OLIVAS Address: home [address] [place] [address]
--- OUTSIDE RECORDS SUMMARY | 2024-03-12 10:22 | XMS_ITS | Continuity of Care Document ---
Author Organization [facility] Adult Address [address] [place] [address]- Care Team Providers Care Watch Parts Inspector Name Role Phone Graciela Colon MD Primary Care Physician [place] [facility] [place](s): 05/12/23 - 06/11/23 [facility] Adult [address] [place] [address]- Allergies, Adverse Reactions, Alerts No Known Allergies [...] capsule, 1 Refills, Maintenance, 01/22/23 16:01:00 EDT, [facility], 180, cm, 09/14/22 16:59:00 EST, Height, 54.5, [...] mg, By Mouth, 3 times a day, FIELD ARTILLERY RADAR OPERATOR checked, # 90 capsule, 5 Refills, Maintenance, 01/16/23 16:32:00 EDT, Capsule, [facility]/pharmacy [...] Team Personnel Name: Keiko Erickson RN Position: [facility] RN Supv Member Role: Primary Care Nurse Name: Graciela Colon MD Position: [facility] Physician - Primary Care Member Role: PCP Address: Address: [address]rd [place] [address]- Care Team Related Persons Name: CARLOS ALBERTO SALDANA Address: home [address] [place] [address] Name: ALDO OLIVAS Address: [place] [address] [place] [address]
--- OUTSIDE RECORDS SUMMARY | 2024-03-12 10:22 | XMS_ITS | Continuity of Care Document ---
Author Organization [facility] Adult Address [address] [place] [address]- Care Team Providers Care Broach Operator Name Role Phone Sabine KURTZ, Brittany Roque Primary Care Physicia n [place] [facility] [place]10[place]21 - 05/10/21 [facility] Adult [address] [place] [address]- Allergies, Adverse Reactions, Alerts No Known Medication [...]
--- OUTSIDE RECORDS SUMMARY | 2024-03-12 10:22 | XMS_ITS | Continuity of Care Document ---
Author Organization [facility] Address [address] [place] [address]- Care Team Providers Care Orthopedic Shoe Maker Name Role Phone Sabine KURTZ, Brittayn Roque Primary Care Physicia n Encounter [facility] Date(s): 08/11/20 - 09/10/20 [facility] [address] [place] [address]- Attending Physician: Redd Delgado Admitting Physician: Redd Delgado Referring Physician: AdmRedd yap Allergies, Adverse Reactions, Alerts Substance Reaction Severity [...]
--- OUTSIDE RECORDS SUMMARY | 2024-03-12 10:22 | XMS_ITS | Continuity of Care Document ---
Author Organization [facility] Adult Address [address] [place] [address]- Care Team Providers Care Maintenance Mechanic Millwright Name Role Phone Sabine KURTZ, Brittany Roque Primary Care Physicia n Encounter [facility] [place](s): 01/14/22 - 01/21/22 [facility] Adult [address] [place] [address]- Encounter Diagnosis Paraplegia following spinal cord injury(Discharge Diagnosis) - 01/14/22 Attending Physician: Brittany Regalado NP Allergies, Adverse Reactions, Alerts No Known Allergies [...] 01/14/22 14:36:00 EDT, ECCapsule, [facility]/pharmacy #[id number], Partial fill upon patient [...] 0 Refills, Maintenance, 01/03/22 15:39:00 EST, Capsule, [facility]/pharmacy #[id number], Partial fill upon patient request if the prescription is for a schedule II opioid drug., 183, c... Start Date: 01/03/22 Stop Date: 02/02/22 Status: Ordered pregabalin 25 mg oral capsule 3 capsule = 75 mg, By Mouth, 3 times a day, Take with the 100 mg capsules, # 270 capsule, 0 Refills, Maintenance, 01/03/22 15:42:00 EST, Capsule, [facility]/pharmacy #[id number], Partial fill upon patient requestif [...] Paraplegia following spinal cord injury Discharge Diagnosis 01/14/22 Vital Signs Most recent to oldest [Reference Range]: 1 Height 183 cm (01/14/22 12:55 PM) Social History Social History Type Response Smoking Status Former smoker; Tobac co user in household: No entered on: 03/10/15 Sex
--- OUTSIDE RECORDS SUMMARY | 2024-03-12 10:22 | XMS_ITS | Continuity of Care Document ---
Author Organization [facility] Adult Address [address] [place] [address]- Care Team Providers Care Exchange Operator Name Role Phone Sabine KURTZ, Brittany Roque Primary Care Physicia n Encounter [facility] Date(s): 08/02/20 - 09/01/20 [facility] Adult [address] [place] [address]- [facility] Allergies, Adverse Reactions, Alerts Substance [...]
--- OUTSIDE RECORDS SUMMARY | 2024-03-12 10:22 | XMS_ITS | Continuity of Care Document ---
Author Organization [facility] Adult Address [address] [place] [address]- Care Team Providers Care Tire Changer Aircraft Name Role Phone Sabine KURTZ, Brittany Roque Primary Care Physicia n [place] [facility] [place](s): 07/06/21 - 07/13/[address] [address]- Encounter Diagnosis Paraplegia following spinal cord injury(Discharge Diagnosis) - 07/06/21 Neurogenic bladder(Discharge Diagnosis) - 07/06/21 Pain, neuropathic(Discharge Diagnosis) - 07/06/21 UTI (urinary tract infection)(Discharge Diagnosis) - 07/06/21 Attending Physician: Not on Staff, Attending MD [...] By Mouth, 3 times a day, # 90 capsule, 0 Refills, Maintenance, 07/11/21 7:55:00EDT, Capsule, [facility], Partial fill upon patient request if the prescription is for aschedule II opioid drug., 180, cm, 07/06/21 13:10:0... Start Date: 07/11/21 Status: Ordered Senokot 187 mg oral tablet [...] Paraplegia following spinal cord injury Discharge Diagnosis 07/06/21 Neurogenic bladder Discharge Diagnosis 07/06/21 Pain, neuropathic Discharge Diagnosis 07/06/21 UTI (urinary tract infection) Discharge Diagnosis 07/06/21 Vital Signs Most recent to oldest [Reference Range]: 1 Height 180 cm (07/06/21 1:10 PM) Weight 52.2 kg (07/06/21 1:10 PM) Body Mass Index [18.5-24.99] 16.11 *L* (07/06/21 1:10 PM) Weight Obtained Via Patient/family state d (07/06/21 1:10 PM) Social History Social History Type Response Smoking Status Former smoker; Tobac co user in household: No entered on: 03/10/15 Sex
--- OUTSIDE RECORDS SUMMARY | 2024-03-12 10:22 | XMS_ITS | Continuity of Care Document ---
Author Organization [facility] Adult Address [address] [place] [address]- Care Team Providers Care Well Point Pumping Supervisor Name Role Phone Graciela Colon MD Primary Care Physician [place] [facility] [place] 08/08/22 - 08/15/22 [facility] Adult [address] [place] [address]- Encounter Diagnosis Well adult exam(Discharge Diagnosis) - 08/08/22 Anemia(Discharge Diagnosis) - 08/08/22 Hyperthyroidism(Discharge Diagnosis) - 08/08/22 Paraplegia, incomplete(Discharge Diagnosis) - 08/10/22 Attending Physician: Graciela Colon MD Allergies, Adverse [...] 90 capsule, 1 Refills, Maintenance, 07/29/2219:49:00 EDT, [facility]/pharmacy #[id number], 183, cm, 07/25/22 12:44:00 EDT, Height, [...] mg, By Mouth, 3 times a day, CELEBRITY CHEF ENTREPRENEUR MEDIA PERSONALITY checked, # 90 capsule, 5 Refills, Maintenance, 03/15/22 9:10:00 EDT, Capsule, [facility]/pharmacy #[id number], Partial fill upon patient request if [...] bladder Confirmed Active Neurogenic bowel Confirmed Active Diagnosis Diagnosis Type Effective Dates Health Status Clinical Service Informant Well adult exam Discharge Diagnosis 08/08/22 Anemia Discharge Diagnosis 08/08/22 Hyperthyroidism Discharge Diagnosis 08/08/22 Paraplegia, incomplete Discharge Diagnosis 08/10/22 Vital Signs Most recent to oldest [Reference Range]: 1 Height 183 cm (08/08/22 2:33 PM) Oxygen Saturation [94-100 %] 95 % (08/08/22 2:33 PM) Pulse Rate [55-90 bpm] 86 bpm (08/08/22 2:33 PM) Blood Pressure [90-138/55-84 mm Hg] 99/6 2mm Hg (08/08/22 2:33 PM) Temperature [96.8-100.4 DegF] 99 DegF (08/08/22 2:33 PM) Mode of Delivery (Oxygen) Room air (08/08/22 2:33 PM) Blood pressure sites Arm, left (08/08/22 2:33 PM) Temperature Route Oral (08/08/22 2:33 PM) Weight Obtained Via Standing scale (08/08/22 2:33 PM) Social History Social History Type Response Tobacco Other: quit at 22. Sex Patient Care team information Personnel Name: Isaiah SANTACRUZ, Graciela Address: Address: [address]rd [address] [place], [place] [address]
--- OUTSIDE RECORDS SUMMARY | 2024-03-12 10:22 | XMS_ITS | Continuity of Care Document ---
Author Organization [facility] Adult Address [address] [place] [address]- Care Team Providers Care Investment Underwriter Name Role Phone Sabine KURTZ, Brittany Roque Primary Care Physicia n [place] [facility] [place] 02/11/22 - 03/13/22 [facility] Adult [address] [place] [address]- Allergies, Adverse Reactions, Alerts No Known Allergies [...] 0 Refills, Maintenance, 02/13/22 15:33:00 EDT, Capsule, [facility]/pharmacy #[id number], Partial fill upon patient [...]
--- OUTSIDE RECORDS SUMMARY | 2024-03-12 10:22 | XMS_ITS | Continuity of Care Document ---
Author Organization [facility] Adult Address [address] [place] [address]- Care Team Providers Care Parts Lister Name Role Phone Graciela Colon MD Primary Care Physician [place] [facility] [place]s): 04/16/23 - 05/16/23 [facility] Adult [address] [place] [address]- Allergies, Adverse Reactions, Alerts No Known Allergies [...] capsule, 1 Refills, Maintenance, 01/22/23 16:01:00 EDT, [facility], 180, cm, 09/14/22 16:59:00 EST, Height, 54.5, [...] mg, By Mouth, 3 times a day, SOCIAL SCIENCES INSTRUCTOR checked, # 90 capsule, 5 Refills, Maintenance, 01/16/23 16:32:00 EDT, Capsule, [facility]/pharmacy #[id number], Partial fill upon patient request [...] Care Member Role: PCP Address: Address: [address]rd [place] [address]- Care Team Related Persons Name: CARLOS ALBERTO SALDANA Address: home [address] [place] [address] Name: ALDO OLIVAS Address: home [address] [place] [address]
--- OUTSIDE RECORDS SUMMARY | 2024-03-12 10:23 | XMS_ITS | Continuity of Care Document ---
Author Organization [facility] Adult Address [address] [place] [address]- Care Team Providers Care Power Superintendent Name Role Phone Sabine KURTZ, Brittany Roque Primary Care Physicia n [place] [facility] [place] 11[place]07[place]21 - 12/07/21 [facility] Adult [address] [place] [address]- Referring Physician: Breanne Rose Allergies, Adverse Reactions, [...] mg, By Mouth, 3 times a day, CABLE ARMORER checked, # 180 capsule, 5 Refills, Maintenance, 07/27/21 11:02:00 EDT, Capsule, [facility]/pharmacy #[id number], Partial fill upon patient [...]
== END 2024-03-12 11:38 | disposition home or self-care (01) ==
LOC: HO.HUSH 10:17
PROVIDERS: PCP Internal Medicine; Visit Provider Nurse Practitioner Family
DX: N31.9 Neuromuscular dysfunction of bladder, unspecified (principal); N39.0 Urinary tract infection, site not specified; N21.0 Calculus in bladder
CPT/HCPCS: 99213

== ENCOUNTER → 2024-03-12 10:17 | Outpatient (BNVA) | payer MEDICARE, MEDICAID, SELFPAY | PROVIDERS: PCP Internal Medicine; Visit Provider Nurse Practitioner Family ==

== ENCOUNTER 2024-09-29 13:49 | Outpatient (AMB) | payer MEDICARE, MEDICAID, SELFPAY ==
--- NOTE | 2024-09-29 12:11 | A.OFFVIS_ITS ---
Intake Visit Reasons: 6M follow up Intake Note: Patient presents today for tele visit follow up on : recurrent uti, bladder stone, and neurogenic bladder Urology Medications: none Blood Thinners: none Talent Acquisition Partner Required: No Accompanied by: Self / Same As Patient Allergies NKDA Allergy (Unknown, Uncoded 09/29/24 13:08) Unknown Medication List - Last Reconciled 09/29/24 by SITA Hagen duloxetine 60 mg PO DAILY pregabalin 200 mg PO TID HPI Comments Details: Wyatt is a pleasant 33-year-old male patient. He has a past medical history of paraplegia, hyperthyroidism, neurogenic bladder, neurogenic bowel, underweight, recurrent urinary tract infections, and bladdder stones. He is being followed up on today via telehealth for his history of recurrent urinary tract infections, bladder stones, and neurogenic bladder. In discussion with the patient today he reports no bothersome urinary issues or concerns since his last office visit here approximately 6 months ago. Continues to [facility]IC 6-8 times per day as patient with a history of neurogenic bladder after suffering a trampoline accident in 2021 and has since been paraplegic. Previous workup has included a retroperitoneal ultrasound 03/26 bilateral kidneys with no calculi, lesions, and or hydronephrosis. The bladder is well distended and normal. Bilateral ureteral jets are demonstrated. Prevoid bladder volume is approximately 300mL. Postvoid bladder volume is 5 mL. Prostate volume measures approximately use be 30 mls. He had been previously following up with [facility]. He denies having had any UTIs and or UTI like symptoms over the last year. He also discusses having erectile dysfunction however does not feel this is bothersome at this time. He denies urinary urgency, urinary frequency, incontinence, nocturia, hematuria, dysuria, foul smelling urine, flank pain, fever, and or chills. He otherwise offers no other issues or concerns at this time. [facility] Medical History History of kidney stones Surgical History H/O spinal fusion H/O lithotripsy Review of Systems Const Reports as per HPI Eyes Reports no additional complaints ENT Reports no additional complaints Card Reports no additional complaints Resp Reports no additional complaints GI Reports as per HPI Reports as per HPI Musc Reports as per HPI Neuro Reports as per HPI Psych Reports no additional complaints Endo Reports as per HPI Physical Exam Const General: cooperative Orientation/consciousness: patient oriented x3 Resp Effort & Inspection: able to speak in complete sentences Neuro General: patient oriented x3 Psych Speech and movement: Clear speech present Attitude: cooperative Thought content: Normal thought content present Insight: Fair insight present (Psych) Judgement: Fair judgement present (Psych) Telehealth Telehealth Telehealth Platform: [employer] Location of provider rendering services: practice address Location of patient: address on file Patient Identification confirmed using: Name, : Yes Telehealth method: voice only Patient verbally consented to treatment: No Patient verbally consented to billing insurance company: No Patient informed of any privacy concerns related to visit: No Minutes spent on Phone/Video with Pt.: 15 Assessment & Plan Assessment & Plan (1) Neurogenic bladder: Code(s): N31.9 - Neuromuscular dysfunction of bladder, unspecified Category: Medical (2) Recurrent UTI: Code(s): N39.0 - Urinary tract infection, site not specified Category: Medical (3) Bladder calculi: Code(s): N21.0 - Calculus in bladder Category: Medical Plan Patient currently denies any bothersome urinary issues or concerns. Discussed, educated, and stressed the importance of drinking water daily. Continue CIC; will send new prescriptions to [facility] per patient request Discussed prophylactic therapy for recurrent urinary tract infections if symptoms arise. Discussed importance of following bowel regimen as constipation can also contribute to recurrent urinary tract infections. Follow-up in 6 months; or sooner with any issues, concerns, and or questions. Patient Instructions: The patient had an opportunity to ask questions regarding the treatment plan. All questions were answered. Physical exam, labs, and imaging were discussed and reviewed in detail. As well as risks, benefits, and discussion of treatment choices. No major barriers to understanding were identified. The patient expressed understanding and agreement with the above treatment plan. The patient was made aware they should contact our office by phone for worsening of their current condition, the appearance of new symptoms, or with any questions or concerns. Compliance is encouraged with any medications and follow up testing that is ordered. It is a privilege to be allowed the opportunity to participate in? your urological care.? Again, if you have any questions or concerns If you have any questions or concerns please do not hesitate to contact me. The office is [phone]. This note is constructed using voice recognition software. While every effort has been made to ensure accuracy motion picture operator errors may have been included. Yours sincerely, AMINA Hagen Coding Level of Care Code Tele Est Pt Level 3 (84455) Diagnoses Neurogenic bladder N31.9 Recurrent UTI N39.0 Bladder calculi N21.0
--- OUTSIDE RECORDS SUMMARY | 2024-09-29 13:53 | XMS_ITS | Continuity of Care Document ---
Author Organization [facility] Address [address] [place] [address]- Care Team Providers Care Decating Machine Operator Name Role Phone Isaiah SANTACRUZ, Graciela Primary Care Physician Encounter [facility] [place] Date(s): 06/15/24 - 07/15/24 [facility] [address] [place] [address]- Allergies, Adverse Reactions, Alerts No Known Allergies [...] Daily, # 90 capsule, 1 Refills, Maintenance, 07/12/24 18:51:00 EDT, [id number], 180, cm, 09/12/23 9:47:00 EST, Height, 54.5, kg, 09/14/22 16:59:00 EST, Dry Weight Start Date: 07/12/24 Status: Ordered magnesium oxide 400 mg oral [...] Maintenance, 09/12/2310:37:00 EST, Route to Pharmacy Electronically, [facility]/pharmacy #[id number], Partial fill upon patient request if the prescription is for a schedule II opioid d... Start Date: 09/12/23 Stop Date: 09/06/24 Status: Ordered pregabalin 200 mg oral capsule 1 capsule = 200 mg, By Mouth, 3 times a day, LAUNDRY AIDE checked, # 90 capsule, 2 Refills, Maintenance, 06/15/24 12:43:00 EDT, Capsule, [facility]/pharmacy #1234, Partial fill upon patient request if the prescription is for a schedule II opioid drug., 180, cm, 09/12... Start Date: 06/15/24 Stop Date: 09/13/24 Status: Ordered Senokot 187 mg oral tablet [...] Team Personnel Name: Keiko Erickson RN Position: [facility] RN Supv Member Role: Primary Care Nurse Name: Graciela Colon MD Position: [facility] Physician - Primary Care Member Role: PCP Address: Address: [address] [place] [address] [address] [place] [address]- Care Team Related Persons Name: CARLOS ALBERTO SALDANA Address: home [address] [place] [address] Name: ALDO OLIVAS Address: home [address] [place] [address]
--- OUTSIDE RECORDS SUMMARY | 2024-09-29 13:53 | XMS_ITS | Continuity of Care Document ---
Author Organization [facility] Adult Address [address] [place] [address]- Care Team Providers Care Harbormaster Name Role Phone Isaiah SANTACRUZ, Graciela Primary Care Physician Encounter [facility] [place] Date(s): 06/14/24 - 07/14/24 [facility] Adult [address] [place] [address]- Allergies, Adverse Reactions, Alerts No Known Allergies [...] capsule, 1 Refills, Maintenance, 07/12/24 18:51:00 EDT, [id number], 180, cm, 09/12/23 9:47:00 EST, Height, 54.5, [...] Maintenance, 09/12/2310:37:00 EST, Route to Pharmacy Electronically, [facility]/pharmacy #1234, Partial fill upon patient request if the prescription is for a schedule II opioid d... Start Date: 09/12/23 Stop Date: 09/06/24 Status: Ordered pregabalin 200 mg oral capsule 1 capsule = 200 mg, By Mouth, 3 times a day, METAL MACHINIST checked, # 90 capsule, 2 Refills, Maintenance, 06/15/24 12:43:00 EDT, Capsule, [facility]/pharmacy #1234, Partial fill upon patient [...] Team Personnel Name: Keiko Erickson RN Position: [facility] RN Supv Member Role: Primary Care Nurse Name: Graciela Colon MD Position: [facility] Physician - Primary Care Member Role: PCP Address: Address: [address] [place] [address] [address] [place] [address]- Care Team Related Persons Name: CARLOS ALBERTO SALDANA Address: home [address] [place] [address] Name: ALDO OLIVAS Address: home [address] [place] [address]
--- OUTSIDE RECORDS SUMMARY | 2024-09-29 13:54 | XMS_ITS | Continuity of Care Document ---
Author Organization [facility] Adult Address [address] [place] [address]- Care Team Providers Care Open Hearth Door Liner Name Role Phone Isaiah SANTACRUZ, Graciela Primary Care Physician Encounter [facility] [place] Date(s): 06/14/24 - 07/14/24 [facility] Adult [address] [place] [address]- Allergies, Adverse Reactions, Alerts No Known Allergies [...] capsule, 1 Refills, Maintenance, 07/12/24 18:51:00 EDT, [id number], 180, cm, 09/12/23 9:47:00 EST, Height, 54.5, [...] Maintenance, 09/12/2310:37:00 EST, Route to Pharmacy Electronically, [facility]/pharmacy #1234, Partial fill upon patient request if the prescription is for a schedule II opioid d... Start Date: 09/12/23 Stop Date: 09/06/24 Status: Ordered pregabalin 200 mg oral capsule 1 capsule = 200 mg, By Mouth, 3 times a day, PERITONEAL DIALYSIS REGISTERED NURSE checked, # 90 capsule, 2 Refills, Maintenance, 06/15/24 12:43:00 EDT, Capsule, [facility]/pharmacy #1234, Partial fill upon patient [...] Name: Keiko Erickson RN Position: [facility] RN Supv Member Role: Primary Care Nurse Name: Graciela Colon MD Position: [facility] Physician - Primary Care Member Role: PCP Address: Address: [address] [place] [address] [address] [place] [address]- Care Team Related Persons Name: CARLOS ALBERTO SALDANA Address: home [address] [place] [address] Name: ALDO OLIVAS Address: home [address] [place] [address]
--- OUTSIDE RECORDS SUMMARY | 2024-09-29 13:55 | XMS_ITS | Continuity of Care Document ---
Author Organization [facility] Address [address] [place] [address]- Care Team Providers Care General Internal Medicine Doctor Name Role Phone Graciela Colon MD Primary Care Physician Encounter [facility] Date(s): 12/11/23 - 04/09/24 [facility] [address] [place] [id number]- Attending Physician: Corie Monroy MD Admitting Physician: Corie Monroy MD Referring Physician: Graciela Colon MD Allergies, Adverse Reactions, [...] capsule, 1 Refills, Maintenance, 01/15/24 15:08:00 EDT, [id number], 180, cm, 09/12/23 9:47:00 EST, Height, 54.5, [...] Maintenance, 09/12/2310:37:00 EST, Route to Pharmacy Electronically, [facility]/pharmacy #1234, Partial fill upon patient request if the prescription is for a schedule II opioid d... Start Date: 09/12/23 Stop Date: 09/06/24 Status: Ordered pregabalin 200 mg oral capsule 1 capsule = 200 mg, By Mouth, 3 times a day, WIND POWER PROJECT MANAGER checked, # 90 capsule, 5 Refills, Maintenance, 12/15/23 8:56:00 EST, Capsule, [facility]/pharmacy #1234, Partial [...] Team Personnel Name: Keiko Erickson RN Position: [facility] RN Supv Member Role: Primary Care Nurse Name: Graciela Colon MD Position: [facility] Physician - Primary Care Member Role: PCP Address: Address: [address] [place] [address] [address] [place] [address]- [place] Care Team Related Persons Name: CARLOS ALBERTO SALDANA Address: home [address] [place] [address] Name: ALDO OLIVAS Address: home [address] [place] [address]
--- OUTSIDE RECORDS SUMMARY | 2024-09-29 13:55 | XMS_ITS | Continuity of Care Document ---
Author Organization [facility] Adult Address [address] [place] [address]- Care Team Providers Care Slash Trimmer Name Role Phone Sabine KURTZ, Brittany Roque Primary Care Physicia n Encounter [facility] [place] Date(s): 02/14/22 - 03/16/22 [facility] [address] [place] [address]- Attending Physician: Redd Delgado Admitting Physician: Redd [...] 1 Refills, Maintenance, 01/14/22 14:36:00 EDT, ECCapsule, [facility]/pharmacy #1234, Partial fill upon patient request if the prescription is for a schedule II opioid drug., 183annie, 01/14/22 12:55:00 EDT, H... Start Date: 01/14/22 [...] mg, By Mouth, 3 times a day, BASE BRANDER checked, # 90 capsule, 5 Refills, Maintenance, 03/15/22 9:10:00 EDT, Capsule, [facility]/pharmacy #1234, Partial fill upon patient request if the prescription is for a schedule II opioid drug., 183annie, ... Start Date: 03/15/22 Status: Ordered Senokot [...]
== END 2024-09-29 15:44 | disposition home or self-care (01) ==
LOC: HO.HUSH 13:49
PROVIDERS: PCP Internal Medicine; Visit Provider Nurse Practitioner Family
DX: N31.9 Neuromuscular dysfunction of bladder, unspecified (principal); N39.0 Urinary tract infection, site not specified; N21.0 Calculus in bladder
CPT/HCPCS: 99442

== ENCOUNTER → 2024-09-29 13:49 | Outpatient (BNVA) | payer MEDICARE, MEDICAID, SELFPAY | PROVIDERS: PCP Internal Medicine; Visit Provider Nurse Practitioner Family | DX: N31.9 Neuromuscular dysfunction of bladder, unspecified (principal); N39.0 Urinary tract infection, site not specified; N21.0 Calculus in bladder ==

== ENCOUNTER 2025-01-18 15:08 | Outpatient (REF) | payer MEDICARE, MEDICAID, SELFPAY ==
[2025-01-19 09:21] LABS: Appearance Urine Clear; Color Urine Yellow; Glucose Urine UA Negative (Negative); Leukocyte Esterase Urine Negative (Negative); Nitrite Urine Positive (Negative); PH 7.5 (5.0-9.0); UMIC TRIGGER UA YES; Urine Blood Negative (Negative); Urine Ketones Negative (Negative); Urine Protein Negative (Neg-Trace)
[2025-01-19 09:24] LABS: Bacteria Urine 4+ (None Seen); Hyaline Casts Urine 0-2 /LPF (0-2); RBC Urine 0-2 /HPF (0-2); Squamous Epithelial Cell Urine 0-2 /HPF (0-2); WBC Urine 0-5 /HPF (0-5)
== END 2025-01-18 15:09 | disposition home or self-care (01) ==
LOC: HO.WFDLDS 15:08
PROVIDERS: Visit Provider Nurse Practitioner Family
DX: N39.0 Urinary tract infection, site not specified (principal); N31.9 Neuromuscular dysfunction of bladder, unspecified; B96.20 Unspecified Escherichia coli [E. coli] as the cause of diseases classified elsewhere
CPT/HCPCS: 81001; 87086; 87088; 87186